=== PATIENT | female | born 1950 | race Caucasian/White ===

== ENCOUNTER 2018-01-21 04:13 | Emergency (ER) | payer OTHER ==
[2018-01-21 05:54] VITALS: BMI 34.5
--- NOTE | 2018-01-21 05:55 | PDOC ---
History of Present Illness - General Stated Complaint: ABD PAIN,VOMITING,DIZZINESS - History of Present Illness Initial Comments: 01/21/18 05:52 67 yo F with h/o ovarian cancer ( 2010 ) s/p total hysterectomy (2012 [facility]), with recurrence who p/w abdominal pain, vomiting. Patient is poor historian with poor insight into medical history. Patient reports multiple episodes of non bilious, non bloody emesis x 3 days. Also endorses worsening, unremitting, non radiating, crampy, midabdominal pressure/pain, x 3 days. Denies postprandial pain.Normal appeitie, and PO intake. Last BM x 2 days ago, with asbent BPR. + SOB, with no home O2 requirements. Endorses lightheadedness this AM. Pt. takes daily chemotherapy pill. Patient denies N/V, leg swelling pain, orthopnea, PND, cough, wheezing, F/C, CP , palpitations, urinary complaints, diarrhea, weakness, sensory changes. PMHx: as noted above ROS: as noted SHx: Denies Etoh, tobacco, IVDA Allergies:NKDA Past History - Past Medical History Allergies/Adverse Reactions: Allergies Allergy/AdvReac Type Severity Reaction Status Date / Time No Known Allergies Allergy Verified 01/21/18 05:49 Home Medications: Ambulatory Orders Bimatoprost [Lumigan] 5 ml OU DAILY 03/12/12 Albuterol 0.083% Nebulizer Fani [Ventolin 0.083% Nebulizer Soln -] 1 neb NEB QIDR #0 vial 03/18/12 Atorvastatin Ca [Lipitor] 20 mg PO HS #0 tablet 03/18/12 Gabapentin 300 mg PO DAILY #0 capsule 03/18/12 Glyburide/Metformin HCl [Glyburide-Metformin 5-500 mg] 1 each PO DAILY #0 tablet 03/18/12 Guaifenesin [Robitussin -] 5 ml PO Q4H PRN #0 cup 03/18/12 Insulin (Novolog) [Novolog Flexpen -] 0 units SQ ACHS #0 pen 03/18/12 Latanoprost 0.005% Eye Drops [Xalatan 0.005% Eye Drops -] 1 drop OU HS #0 drops 03/18/12 Magnesium Oxide [Mag-Ox -] 400 mg PO BID #0 tablet 03/18/12 Metoprolol Tartrate [Lopressor -] 25 mg PO BID #0 tab 03/18/12 Zejula 100 mg PO DAILY 10/06/17 Diabetes: Yes HTN: Yes Hypercholesterolemia: Yes - Surgical History Abdominal Surgery: Yes (abdominal hernia repair) - Suicide/Smoking/Psychosocial Hx Smoking Status: No Smoking History: Never smoked Number of Cigarettes Smoked Daily: 0 Hx Alcohol Use: Yes Drug/Substance Use Hx: Yes Substance Use Type: None Hx Substance Use Treatment: No Review of Systems - Review of Systems Comments:: 01/21/18 05:53 GENERAL/CONSTITUTIONAL: No fever or chills. No weakness. HEAD, EYES, EARS, NOSE AND THROAT: No change in vision. No ear pain or discharge. No sore throat. CARDIOVASCULAR: No chest pain or shortness of breath RESPIRATORY: No cough, wheezing, or hemoptysis. GASTROINTESTINAL: + nausea, vomiting, diarrhea, abdominal pain. No constipation. GENITOURINARY: No dysuria, frequency, or change in urination. MUSCULOSKELETAL: No joint or muscle swelling or pain. No neck or back pain. SKIN: No rash NEUROLOGIC: + Lightheadedness. No headache, vertigo, loss of consciousness, or change in strength/sensation. ENDOCRINE: No increased thirst. No abnormal weight change HEMATOLOGIC/LYMPHATIC: No anemia, easy bleeding, or history of blood clots. ALLERGIC/IMMUNOLOGIC: No hives or skin allergy. *Physical Exam - Physical Exam Comments: 01/21/18 05:53 GENERAL: Awake, alert, and fully oriented, in no acute distress HEAD: No signs of trauma, normocephalic, atraumatic EYES: PERRLA, EOMI, sclera anicteric, conjunctiva clear ENT: Auricles normal inspection, hearing grossly normal, nares patent, oropharynx clear without exudates. Moist mucosa NECK: Normal ROM, supple, no lymphadenopathy, JVD, or masses LUNGS: No distress, speaks full sentences, clear to auscultation bilaterally HEART: Regular rate and rhythm, normal S1 and S2, no murmurs, rubs or gallops, peripheral pulses normal and equal bilaterally. ABDOMEN: + Midabdominal ttp. Soft, nontender, normoactive bowel sounds, NDS. No guarding, no rebound, no rigidity. No masses. Neg CVA ttp. EXTREMITIES : Normal inspection, Normal range of motion, no edema. No clubbing or cyanosis. NEUROLOGICAL: Cranial nerves II through XII grossly intact. Normal speech, normal gait, no focal sensorimotor deficits SKIN: + Jaundiced appearing. Warm, Dry, normal turgor, no rashes or lesions noted ED Treatment Course - LABORATORY CBC & Chemistry Diagram: 01/21/18 06:40 01/21/18 06:40 Medical Decision Making - Medical Decision Making 01/21/18 06:36 67 yo F with h/o ovarian cancer ( 2010 ) s/p total hysterectomy (2012 [facility]), with recurrence who p/w abdominal pain, vomiting. HR 92, O2 80 % RA, vitals otherwise wnl, AF. O2 improved to 95% on 3 L NC. + Midabdominal ttp. Will consider biliary vs. hepatic dz. vs. metastisis. R/o SBO. PERC +, with moderate risk PE Weils criteria. DDx includes AAA, Ao dissection, mesenteric ischemia, diverticulitis, colititis, pancreatitis, nephrolithaisis. ED Course: CBC, CMP, LA, VBG, T&S, UA Zosyn ABD FLAT/UPRIGHT RAD, CXR CT AP, CT CHEST 01/21/18 07:12 H/H: 4.1/11.7 2 U PRBC 01/21/18 07:12 Patient signed out to day team. Patient stable. Pending CXR, ABD RAD,CTAP, CT CHEST *DC/Admit/Observation/Transfer Diagnosis at time of Disposition: Nausea & vomiting Qualifiers: Vomiting type: unspecified Vomiting Intractability: non-intractable Qualified Code(s): R11.2 - Nausea with vomiting, unspecified - Referrals Referrals: Ismael Amezquita MD [Primary Care Provider] - - Patient Instructions Additional Instructions: Please return to the emergency department with any new or worsening symptoms or concerns. Please follow up with your primary care physician within 72 hours. - Post Discharge Activity - Attestations Physician Attestion: 01/21/18 05:53 I attest to the information provided in this note.
--- NOTE | 2018-01-21 06:36 | PDOC ---
Attending Attestation - Resident Resident Name: Faisal Mixon - ED Attending Attestation I have performed the following: I have examined & evaluated the patient, The case was reviewed & discussed with the resident, I agree w/resident's findings & plan, Exceptions are as noted - HPI HPI: 01/21/18 07:19 The patient is a 67-year-old female, with a past medical history of HTN, HLD, DM , and ovarian cancer (diagnosed in 01/2011; total hysterectomy in 2012, recurrence "in the last few years"), who presents to the ED with 3-4 days of epigastric pain, nausea, vomiting, and shortness of breath. The patient describes the pain as constant, localized to the epigastrium, and pressure-like in sensation. Patient reports multiple episodes of nonbloody, nonbilious emesis in the past 3 days. Patient denies any episodes of diarrhea but does report constipation. LBM was 3 days ago; no blood noted. Patient is currently on oral chemotherapy. The patient is a poor historian. The patient denies any fevers or chills. Denies any chest pain or palpitations. Denies any urinary complaints. Allergies: NKA Social History: None reported Surgical History: hernia repair, total hysterectomy (2012). PCP: Dr. Amezquita - Physicial Exam PE: 01/21/18 06:33 GENERAL: Awake, alert, and fully oriented, in no acute distress. HEAD: No signs of trauma EYES: PERRLA, EOMI, +scleral icterus ENT: Oropharynx clear without exudates. Moist mucosa NECK: Normal ROM, supple, no lymphadenopathy, JVD, or masses LUNGS: Breath sounds equal, clear to auscultation bilaterally. No wheezes, and no crackles HEART: Regular rate and rhythm, normal S1 and S2, no murmurs, rubs or gallops ABDOMEN: diffuse ttp, worse over epigastric area, large healed midline scar. No rebound or guarding. Distention difficult to assess due to body habitus EXTREMITIES: Normal range of motion, trace symmetric LE non pitting edema. No clubbing or cyanosis. No cords, erythema, or tenderness NEUROLOGICAL: Normal speech, cranial nerves intact, 5/5 strength in all 4 extremities, normal sensation to light touch in all 4 extremities, normal tone SKIN: Jaundiced in appearance (although states unchanged) - Medical Decision Making 01/21/18 06:30 67yo F with MMP including recurrent ovarian ca on daily oral chemo (followed at [facility], does not know about metastasis or last tx date) presents to the ED with epigastric pain, N/V, and SOB. Pt found to be tachycardic, tachypneic, hypoxic and jaundiced in appearance. Will do a wide work up for abd pain, although concern for biliary obstruction likely due to mets. Will cover with Zosyn in case of ascending cholangitis. Will also work the pt up for PE given tachycardia and hypxia. Will check sepsis labs and obtain CXR/AXR. 01/21/18 07:17 Hgb 4, prbc ordered REmainder of w/u pending Pt signed out to day team for f/u on diagnostics and dispo Heart Score/ECG Review #1 01/21/18 07:18 Twelve-lead EKG was performed and reviewed by me. Normal sinus rhythm, rate 96. Normal axis. No ST elevations or T-wave inversions.
[2018-01-21] MEDS ORDERED: PIPERACILLIN/TAZOB 4.5 GM 4.5 GM in DEXTROSE 5%-WATER 100 ML IVPB ONE (06:37)
[2018-01-21 06:50] LABS: BASO % 0.3 % (0-2.0); EOS % 0.1 % (0-4.5); HEMATOCRIT 11.7 % (32.4-45.2); LYMPH % 13.6 % (8-40); MCHC 35.1 g/dl (32.0-36.0); MEAN CELL VOLUME 117.1 fl (80-96); MEAN PLT VOLUME 8.9 fl (7.5-11.1); MONO % 6.5 % (3.8-10.2); NEUT % 79.5 % (42.8-82.8); PLATELET COUNT 229 K/MM3 (134-434); RDW 21.6 % (11.6-15.6)
[2018-01-21] MEDS ORDERED: PIPERACILLIN/TAZOB 4.5 GM 4.5 GM/100 ML BAG IVPB ONE (06:50)
[2018-01-21 06:53] LABS: MCH 41.1 pg (25.7-33.7)
[2018-01-21 06:54] LABS: HEMOGLOBIN 4.1 GM/dL (10.7-15.3)
[2018-01-21 07:02] LABS: INR 1.54 (0.83-1.09); PROTHROMBIN TIME (PATIENT) 18.3 SEC (9.7-13.0)
[2018-01-21 07:04] LABS: ACTIVATED PTT 24.4 SECONDS (25.2-36.5)
[2018-01-21 07:08] LABS: VENOUS PC02 31.7 mmHg (38-52); VENOUS PH 7.41 (7.32-7.42)
[2018-01-21 07:09] LABS: VENOUS PO2 33.9 mmHg (28-48)
[2018-01-21 07:23] LABS: URINE APPEARANCE CLEAR; URINE BILIRUBIN NEGATIVE (<2.0 mg/dL); URINE COLOR YELLOW; URINE GLUCOSE (UA) NEGATIVE (NEGATIVE); URINE KETONE TRACE (NEGATIVE); URINE LEUK ESTERASE TRACE (NEGATIVE); URINE NITRITE NEGATIVE (NEGATIVE); URINE PROTEIN NEGATIVE (NEGATIVE); URINE UROBILINOGEN NEGATIVE mg/dL (0.2-1.0)
[2018-01-21] MEDS ORDERED: FUROSEMIDE 40 MG/4 ML INJECTABLE VIAL IVPUSH ONE (07:40)
[2018-01-21 07:45] LABS: EPI CELLS RARE /HPF (FEW); URINE BACTERIA RARE /hpf (NONE SEEN)
[2018-01-21 07:50] LABS: ALBUMIN 3.1 g/dl (3.4-5.0); ALK PHOS 104 U/L (45-117); ANION GAP 13 MMOL/L (8-16); BILIRUBIN,TOTAL 1.8 mg/dL (0.2-1); BLOOD UREA NITROGEN 32 mg/dL (7-18); CALCIUM 8.5 mg/dL (8.5-10.1); CHLORIDE 92 mmol/L (98-107); CO2 21 mmol/L (21-32); CREATININE 1.2 mg/dL (0.55-1.3); GLUCOSE,RANDOM 198 mg/dL (74-106); SGOT/AST 42 U/L (15-37); SGPT/ALT 26 U/L (13-61); SODIUM 126 mmol/L (136-145); TOT PROT 7.3 g/dl (6.4-8.2)
[2018-01-21 07:57] LABS: ANISOCYTOSIS 2+; MACROCYTOSIS 3+
[2018-01-21 07:58] LABS: PLATELET ESTIMATE ADEQUATE
[2018-01-21] MEDS ORDERED: FUROSEMIDE 40 MG/4 ML INJECTABLE VIAL ONE (10:12)
[2018-01-21] MEDS ORDERED: ONDANSETRON 4 MG/2 ML VIAL ONE (11:13)
--- NOTE | 2018-01-21 11:56 | EKG ---
Test Reason : Blood Pressure : / mmHG Vent. Rate : 096 BPM Atrial Rate : 096 BPM P-R Int : 132 ms QRS Dur : 086 ms QT Int : 380 ms P-R-T Axes : 041 -11 066 degrees QTc Int : 480 ms NORMAL SINUS RHYTHM WITH SINUS ARRHYTHMIA CANNOT RULE OUT ANTERIOR INFARCT , AGE UNDETERMINED ABNORMAL ECG WHEN COMPARED WITH ECG OF 17-MAR-2012 09:47, MINIMAL CRITERIA FOR ANTERIOR INFARCT ARE NOW PRESENT NON-SPECIFIC CHANGE IN ST SEGMENT IN LATERAL LEADS NONSPECIFIC T WAVE ABNORMALITY NOW EVIDENT IN ANTERIOR LEADS QT HAS LENGTHENED Confirmed by ЕЛЕНА RAMOS, SARAH ([id number]) on 01/21/2018 11:56:08 AM Referred By: Confirmed By:SARAH CHRISTIANSEN MD
--- NOTE | 2018-01-21 13:43 | PDOC ---
*Physical Exam - Vital Signs Last Vital Signs Temp Pulse Resp BP Pulse Ox 98 F 90 20 147/45 L 96 01/21/18 11:00 01/21/18 11:00 01/21/18 11:00 01/21/18 11:00 01/21/18 11:00 ED Treatment Course - LABORATORY CBC & Chemistry Diagram: 01/21/18 06:40 01/21/18 06:40 - ADDITIONAL ORDERS Additional order review: Laboratory Results 01/21/18 01/21/18 01/21/18 08:00 07:57 06:59 PT with INR INR PTT (Actin FS) VBG pH POC VBG pCO2 POC VBG pO2 Mixed VBG HCO3 Sodium Potassium Chloride Carbon Dioxide Anion Gap BUN Creatinine Creat Clearance w eGFR Random Glucose Lactic Acid 4.0 H* Calcium Total Bilirubin AST ALT Alkaline Phosphatase Troponin I Total Protein Albumin Urine Color Urine Appearance Urine pH Ur Specific Powers Urine Protein Urine Glucose (UA) Urine Ketones Urine Blood Urine Nitrite Urine Bilirubin Urine Urobilinogen Ur Leukocyte Esterase Urine WBC (Auto) Urine RBC (Auto) Ur Epithelial Cells Urine Bacteria Blood Type Cancelled O POSITIVE Antibody Screen Cancelled Negative Crossmatch See Detail 01/21/18 01/21/18 01/21/18 06:59 06:40 06:40 PT with INR INR PTT (Actin FS) VBG pH POC VBG pCO2 POC VBG pO2 Mixed VBG HCO3 Sodium Potassium Chloride Carbon Dioxide Anion Gap BUN Creatinine Creat Clearance w eGFR Random Glucose Lactic Acid 4.8 H* Calcium Total Bilirubin AST ALT Alkaline Phosphatase Troponin I Cancelled Total Protein Albumin Urine Color Yellow Urine Appearance Clear Urine pH 5.0 Ur Specific Powers 1.013 Urine Protein Negative Urine Glucose (UA) Negative Urine Ketones Trace H Urine Blood Negative Urine Nitrite Negative Urine Bilirubin Negative Urine Urobilinogen Negative Ur Leukocyte Esterase Trace Urine WBC (Auto) 2 Urine RBC (Auto) 1 Ur Epithelial Cells Rare Urine Bacteria Rare Blood Type Antibody Screen Crossmatch 01/21/18 01/21/18 01/21/18 06:40 06:40 06:40 PT with INR 18.30 H INR 1.54 H PTT (Actin FS) 24.4 L VBG pH 7.41 POC VBG pCO2 31.7 L POC VBG pO2 33.9 Mixed VBG HCO3 19.8 Sodium 126 L Potassium 4.0 Chloride 92 L Carbon Dioxide 21 Anion Gap 13 BUN 32 H Creatinine 1.2 Creat Clearance w eGFR 44.95 Random Glucose 198 H Lactic Acid Calcium 8.5 Total Bilirubin 1.8 H AST 42 H ALT 26 Alkaline Phosphatase 104 Troponin I 0.86 H* Total Protein 7.3 Albumin 3.1 L Urine Color Urine Appearance Urine pH Ur Specific Powers Urine Protein Urine Glucose (UA) Urine Ketones Urine Blood Urine Nitrite Urine Bilirubin Urine Urobilinogen Ur Leukocyte Esterase Urine WBC (Auto) Urine RBC (Auto) Ur Epithelial Cells Urine Bacteria Blood Type Antibody Screen Crossmatch 01/21/18 06:40 RBC 1.00 L MCV 117.1 H MCHC 35.1 RDW 21.6 H MPV 8.9 D Neutrophils % 79.5 D Lymphocytes % 13.6 D Monocytes % 6.5 Eosinophils % 0.1 D Basophils % 0.3 - RADIOLOGY Radiology Studies Ordered: Category Date Time Status ABDOMEN & PELVIS CT W/O CONTR [CT] Stat CT Scan 01/21/18 10:52 Ordered - Medications Given in the ED: ED Medications Discontinued Medications Generic Name Dose Route Start Last Admin Trade Name Freq PRN Reason Stop Dose Admin Furosemide 20 mg 01/21/18 07:40 01/21/18 10:22 Lasix Injection - IVPUSH 01/21/18 07:41 20 mg ONCE ONE Administration Piperacillin Sod/Tazobactam 100 mls @ 200 mls/hr 01/21/18 06:37 01/21/18 06: 50 Sod 4.5 gm/ Dextrose IVPB 01/21/18 07:06 200 mls/hr ONCE ONE Administration Protocol *DC/Admit/Observation/Transfer Diagnosis at time of Disposition: Nausea & vomiting Qualifiers: Vomiting type: unspecified Vomiting Intractability: non-intractable Qualified Code(s): R11.2 - Nausea with vomiting, unspecified - Discharge Dispostion Disposition: TRANSFER ACUTE CARE/OTHER HOSP Condition at time of disposition: Stable - Referrals Referrals: Ismael Amezquita MD [Primary Care Provider] - - Patient Instructions Additional Instructions: Please return to the emergency department with any new or worsening symptoms or concerns. Please follow up with your primary care physician within 72 hours. - Post Discharge Activity - Transfer to Acute Care Facility Receiving Facility: [facility]. Accepting Physician:: Mehdi
[2018-01-21 14:48] VITALS: TEMP 98.1
[2018-01-21 15:11] VITALS: BP 136/61; PULSE 100
== END 2018-01-21 15:16 | disposition short-term general hospital (02) ==
LOC: JER 04:13
PROC: 3E033GC Introduction of Other Therapeutic Substance into Peripheral Vein, Percutaneous Approach (ICD-10-PCS; principal; 2018-01-21)
PROC: 3E03329 Introduction of Other Anti-infective into Peripheral Vein, Percutaneous Approach (ICD-10-PCS; 2018-01-21)
DX: R11.2 Nausea with vomiting, unspecified (principal); Z85.43 Personal history of malignant neoplasm of ovary; I10 Essential (primary) hypertension; E78.00 Pure hypercholesterolemia, unspecified
CPT/HCPCS: 36415; 36430; 71045-TC-FY; 74176-TC; 80053; 81003; 81015; 82803; 83605; 84484; 85025; 85610; 85730; 86850; 86900; 86901; 86922; 87040; 87086; 93005; 93010; 96365; 96375; 99285-25; P9038; P9058

== ENCOUNTER 2018-07-18 17:38 | Inpatient (IN) | payer OTHER ==
[2018-07-18 18:20] VITALS: BMI 31.1
[2018-07-18] MEDS ORDERED: LABETALOL HCL 5 MG/1 ML (100MG/20 ML VIAL) IVPUSH ONE (18:27)
--- NOTE | 2018-07-18 18:31 | PDOC ---
History of Present Illness - General Chief Complaint: Weakness Stated Complaint: PCP SENT Time Seen by Provider: 07/18/18 18:04 History Source: Patient, Family Exam Limitations: No Limitations, Other (AMS) - History of Present Illness Initial Comments: 67 yo F h/o ovarian cancer (2010) s/p total hysterectomy (2012 [facility]) with recurrence sent by PCP for elevated BP and altered mental status. Per son at bedside, patient became unwell last and BP was elevated on Friday to over 200s systolic. Patient's mental status has progressively getting worse, off her baseline. No fever, chills, urinary or bowel sx, cough, sob, or chest pain. 07/18/18 19:51 Na+ 124, bp improved marginally after 10mg labetalol push, awaiting UA. Patient' s still altered. CT head negative. Will hydrate the patient at slow rate with NS, give 80mg of diovan for longer acting effect of bp control. reheck sodium in 6 h and neuro check q2h. Past History - Past Medical History Allergies/Adverse Reactions: Allergies Allergy/AdvReac Type Severity Reaction Status Date / Time No Known Allergies Allergy Verified 07/18/18 19:39 Home Medications: Ambulatory Orders Insulin (Novolog) [Novolog Flexpen -] 0 units SQ ACHS #0 pen 03/18/12 Isosorbide Mononitrate [Isosorbide Mononitrate ER] 30 mg PO BID 01/21/18 Aspirin [ASA -] 81 mg PO DAILY 07/18/18 Ferrous Sulfate 325 mg PO DAILY 07/18/18 Insulin Degludec [Tresiba Flextouch U-100] 0 unit SQ ASDIR 07/18/18 Magnesium 500 mg PO DAILY 07/18/18 Metoprolol Tartrate 50 mg PO BID 07/18/18 Shiloh-3 Fatty Acids/Fish Oil [Fish Oil 1,000 mg Capsule] 1 each PO DAILY Omeprazole 40 mg PO DAILY 07/18/18 Valsartan 320 mg PO DAILY 07/18/18 Vitamin B Complex 1 each PO DAILY 07/18/18 Cancer: Yes (Ovarian) COPD: No Diabetes: Yes HTN: Yes Hypercholesterolemia: Yes - Surgical History Abdominal Surgery: Yes (abdominal hernia repair) - Suicide/Smoking/Psychosocial Hx Smoking Status: No Smoking History: Never smoked Have you smoked in the past 12 months: No Number of Cigarettes Smoked Daily: 0 Information on smoking cessation initiated: No Hx Alcohol Use: No Drug/Substance Use Hx: No Substance Use Type: None Hx Substance Use Treatment: No Review of Systems - Review of Systems Able to Perform ROS?: No *Physical Exam - Vital Signs Last Vital Signs Temp Pulse Resp BP Pulse Ox 97.9 F 65 16 218/60 H 100 07/18/18 17:45 07/18/18 17:45 07/18/18 17:45 07/18/18 17:45 07/18/18 17:45 - Physical Exam General Appearance: Yes: Other (confused) Respiratory/Chest: positive: Lungs Clear Cardiovascular: positive: S1, S2, Irregularly Irregular. negative: Murmur Neurologic: positive: Confused, Disoriented ED Treatment Course - LABORATORY CBC & Chemistry Diagram: 07/18/18 18:53 07/18/18 21:15 - ADDITIONAL ORDERS Additional order review: Laboratory Results 07/18/18 18:06 POC Glucometer 134 07/18/18 18:06 POC Glucometer 134 *DC/Admit/Observation/Transfer Diagnosis at time of Disposition: Hypertensive encephalopathy Altered mental status Qualifiers: Altered mental status type: disorientation Qualified Code(s): R41.0 - Disorientation, unspecified - Discharge Dispostion Decision to Admit order: Yes - Referrals - Patient Instructions - Post Discharge Activity
[2018-07-18 18:47] LABS: BASO % 0.6 % (0-2.0); EOS % 0.8 % (0-4.5); HEMATOCRIT 33.1 % (32.4-45.2); HEMOGLOBIN 11.2 GM/dL (10.7-15.3); LYMPH % 27.2 % (8-40); MCH 30.5 pg (25.7-33.7); MCHC 33.9 g/dl (32.0-36.0); MEAN PLT VOLUME 7.9 fl (7.5-11.1); MONO % 6.2 % (3.8-10.2); NEUT % 65.2 % (42.8-82.8); PLATELET COUNT 225 K/MM3 (134-434); RBC 3.67 M/mm3 (3.60-5.2); RDW 17.4 % (11.6-15.6); WHITE BLOOD COUNT 7.3 K/mm3 (4.0-10.0)
[2018-07-18] MEDS ORDERED: LABETALOL HCL 5 MG/1 ML (200MG/40ML VIAL) IVPB ONE (18:54)
[2018-07-18 18:58] LABS: INR 1.13 (0.83-1.09); PROTHROMBIN TIME (PATIENT) 13.4 SEC (9.7-13.0)
[2018-07-18 19:00] LABS: ACTIVATED PTT 37.3 SECONDS (25.2-36.5)
[2018-07-18 19:08] LABS: VENOUS PC02 32.8 mmHg (41-51); VENOUS PH 7.52 (7.31-7.41); VENOUS PO2 32.9 mmHg (30-40)
[2018-07-18 19:12] LABS: ALK PHOS 90 U/L (45-117); ANION GAP 10 MMOL/L (8-16); BILIRUBIN,TOTAL 0.5 mg/dL (0.2-1); BLOOD UREA NITROGEN 21 mg/dL (7-18); CALCIUM 8.6 mg/dL (8.5-10.1); CHLORIDE 88 mmol/L (98-107); CO2 26 mmol/L (21-32); CREATININE 1.4 mg/dL (0.55-1.3); GLUCOSE,RANDOM 135 mg/dL (74-106); POTASSIUM 3.9 mmol/L (3.5-5.1); SGOT/AST 23 U/L (15-37); SGPT/ALT 19 U/L (13-61); SODIUM 124 mmol/L (136-145); TOT PROT 8.4 g/dl (6.4-8.2)
[2018-07-18] MEDS ORDERED: SODIUM CHLORIDE 1,000 ML IV SCH (19:30)
[2018-07-18] MEDS ORDERED: VALSARTAN 80 MG TABLET (UD) PO ONE (19:38)
--- NOTE | 2018-07-18 19:45 | PDOC ---
Attending Attestation - HPI HPI: 07/18/18 21:30 The patient is a 67 year old female, with a significant PMH of ovarian cancer, peritoneal cancer, diabetes, HTN and hypercholesterolemia, who was sent to the ER by her PCP for altered mental status and high blood pressure that began 2 days ago. Son reports to taking patient to the PCP regarding elevated BP where she was advised to stop her chemo pills. Son took patient to cyber forensic specialist yesterday and found no abnormal finding. Sales Market Leader report patient can start taking her chemo pills again. Today, the patient's mental status has progressively worsened today and mentions that her systolic was over 200s.The patients son also reports he came to the patient's house to give her medications and found medication box empty. Patient states she cleaned it out and unsure of what she did with it. The patient denies chest pain, shortness of breath, headache and dizziness.Denies fever, chills, nausea, vomit, diarrhea and constipation. Allergies: NKDA Past surgical history: None reported Social history: None reported PCP: None reported Documentation prepared by Trevin Lopez, acting as medical transcriber for Laurie Cabrera MD. - Physicial Exam PE: 07/18/18 21:31 GENERAL: Following commands unable to verbalize but able to comprehend The patient is in no acute distress. HEAD: Normal with no signs of trauma. LUNGS: Breath sounds equal, clear to auscultation bilaterally. No wheezes, and no crackles. HEART:Regular rate and rhythm, normal S1 and S2 without murmur, rub or gallop. ABDOMEN: Soft, nontender, normoactive bowel sounds. No guarding, no rebound. No masses palpable. EXTREMITIES: Normal range of motion, no edema. No clubbing or cyanosis. No erythema, or tenderness. NEUROLOGICAL: Cranial nerves II through XII grossly intact. Normal speech. No focal neurological deficits. MUSCULOSKELETAL: Back non-tender to palpation, no CVA tenderness SKIN:+cervical scar on the abdomen Documentation prepared by Trevin Lopez, acting as medical transcriber for Laurie Cabrera MD. <Trevin Lopez - Last Filed: 07/18/18 21:30> - Resident Resident Name: Mina Nguyen - ED Attending Attestation I have performed the following: I have examined & evaluated the patient, The case was reviewed & discussed with the resident, I agree w/resident's findings & plan - Medical Decision Making 07/18/18 20:03 EKG: NSR CXR port in the right subclavian Hear and lungs clear 07/19/18 00:03 Pt dehydrated; trace ketones in her urine. She has better mentition at this time. She can answer questions and tells us her name and her son's name. 07/19/18 04:53 Patient Name: VISHNU CALLES THIS IS A PRELIMINARY REPORT FROM IMAGING DIRECTOR [employer] DATE OF SERVICE: 2018-07-18 18:41:32 IMAGES: 138 Exam: CT head without IV contrast. Clinical indication:Altered mental status. Comparison:None available. Technique: Axial unenhanced CT images from the skull base through the brain were obtained followed by coronal and sagital reformats. Findings: The visualized bony structures are unremarkable. The visualized paranasal sinuses and mastoid air cells are clear. There is no evidence of intra-or extra-axial hemorrhage. The ventricles and basilar cisterns are unremarkable. There is some mild periventricular hypodensities consistent with mild chronic small vessel ischemic changes. There is no evidence of intracranial mass, acute infarct, or midline shift. Impression: 1. Mild chronic small vessel ischemic changes. 2. Otherwise, negative unenhanced CT of the brain <Laurie Cabrera - Last Filed: 07/19/18 04:54>
[2018-07-18] MEDS ORDERED: VALSARTAN 80 MG TABLET (UD) ONE (19:48)
[2018-07-18 20:42] LABS: PH,URINE 8.5 (5.0-8.0); URINE APPEARANCE CLEAR; URINE BILIRUBIN NEGATIVE (NEGATIVE); URINE COLOR YELLOW; URINE GLUCOSE (UA) NEGATIVE (NEGATIVE); URINE KETONE TRACE (NEGATIVE); URINE LEUK ESTERASE NEGATIVE (NEGATIVE); URINE NITRITE NEGATIVE (NEGATIVE); URINE PROTEIN NEGATIVE (NEGATIVE); URINE UROBILINOGEN 0.2 mg/dL (0.2-1.0)
[2018-07-18 20:46] LABS: MAGNESIUM 1.6 mg/dL (1.8-2.4); PHOSPHOROUS 2.6 mg/dL (2.5-4.9)
[2018-07-18] MEDS ORDERED: morphine CARPU-JECT 2 MG/1 ML DISP.SYRIN IVPUSH ONE (20:49)
[2018-07-18] MEDS ORDERED: NITROGLYCERIN 2% OINTMENT - 1GM PACKET TD ONE ×2 (20:49→20:56)
[2018-07-18] MEDS ORDERED: MAGNESIUM SULF 50% (8.12 MEQ/2 ML-1 GM VIAL) IVPB ONE (20:50)
[2018-07-18] MEDS ORDERED: MORPHINE SULFATE 2 MG/ML VIAL ONE (20:56)
[2018-07-18] MEDS ORDERED: MAGNESIUM 1GM/D5W - 1 GM/100 ML IVPB IVPB ONE (20:57)
[2018-07-18] MEDS ORDERED: ACETAMINOPHEN INJECTION 100 ML IVPB ONE (21:05)
[2018-07-18] MEDS ORDERED: NITROGLYCERIN SUBLINGUAL 1/150 0.4 MG TAB SL ONE (21:17)
[2018-07-18] MEDS ORDERED: ACETAMINOPHEN 1000 MG/100 ML VIAL (NON FORMULARY) IVPB ONE (21:18)
[2018-07-18 21:43] LABS: ALBUMIN 3.7 g/dl (3.4-5.0); ALK PHOS 83 U/L (45-117); ANION GAP 11 MMOL/L (8-16); BILIRUBIN,TOTAL 0.5 mg/dL (0.2-1); BLOOD UREA NITROGEN 20 mg/dL (7-18); CALCIUM 8.6 mg/dL (8.5-10.1); CHLORIDE 91 mmol/L (98-107); CO2 24 mmol/L (21-32); CREATININE 1.3 mg/dL (0.55-1.3); GLUCOSE,RANDOM 141 mg/dL (74-106); POTASSIUM 3.7 mmol/L (3.5-5.1); SGOT/AST 23 U/L (15-37); SGPT/ALT 17 U/L (13-61); SODIUM 126 mmol/L (136-145); TOT PROT 7.8 g/dl (6.4-8.2)
--- NOTE | 2018-07-18 23:30 | HP ---
Admitting History and Physical - Primary Care Physician PCP: Ismael Amezquita - Admission Chief Complaint: Elevated BP, AMS History of Present Illness: This is a 67 y/o woman with a PMHx of Ovarian Ca, (2011) s/p total hysterectomy (on Chemo x 1 year stopped on Friday), HTN, HLD, DM. Who presents to the ED for elevated BP and AMS. The son reports, taking the patient to her PCP for elevated BP, where she was advised to stop her chemo pills. The son took patient to the prick stitcher yesterday and who found no abnormal finding. The prick stitcher told him the patient can start taking her chemo pills again. Today, the patient's mental status has progressively worsened, and that her systolic BP was over 200.The patients son also reports he came to the patient' s house to give her medications and found her medication box empty.Patient states she cleaned it out and unsure of what she did with it. The son reports that the patient was very weak and unsteady on her feet. The son denies patient having slurred speech, facial droop or unilateral weakness. The patient denies numbness, tingling or blurred vision. Patient denies fever, chills, cough, SOB, CP, palpitations, AP, N/V/D, constipation, dysuria History Source: Family Member, Medical Record Limitations to Obtaining History: Clinical Condition - Past Medical History Cardiovascular: Yes: HTN, Hyperlipdemia Reproductive: Yes: Other (Ovarian Ca) Heme/Onc: Yes: Current Chemotherapy - Past Surgical History Past Surgical History: Yes: Hysterectomy (debulking) - Smoking History Smoking history: Never smoked Have you smoked in the past 12 months: No Aproximately how many cigarettes per day: 0 - Alcohol/Substance Use Hx Alcohol Use: No History of Substance Use: reports: None - Social History Usual Living Arrangement: Yes: With Spouse ADL: Independent History of Recent Travel: No Home Medications - Allergies Allergies/Adverse Reactions: Allergies Allergy/AdvReac Type Severity Reaction Status Date / Time No Known Allergies Allergy Verified 07/18/18 19:39 - Home Medications Home Medications: Ambulatory Orders Insulin (Novolog) [Novolog Flexpen -] 0 units SQ ACHS #0 pen 03/18/12 Isosorbide Mononitrate [Isosorbide Mononitrate ER] 30 mg PO BID 01/21/18 Aspirin [ASA -] 81 mg PO DAILY 07/18/18 Ferrous Sulfate 325 mg PO DAILY 07/18/18 Insulin Degludec [Tresiba Flextouch U-100] 0 unit SQ ASDIR 07/18/18 Magnesium 500 mg PO DAILY 07/18/18 Metoprolol Tartrate 50 mg PO BID 07/18/18 [place]-3 Fatty Acids/Fish Oil [Fish Oil 1,000 mg Capsule] 1 each PO DAILY Omeprazole 40 mg PO DAILY 07/18/18 Valsartan 320 mg PO DAILY 07/18/18 Vitamin B Complex 1 each PO DAILY 07/18/18 Family Disease History - Family Disease History Family History: Unable to Obtain Review of Systems - Review of Systems Constitutional: reports: No Symptoms Eyes: reports: No Symptoms HENT: reports: No Symptoms Neck: reports: No Symptoms Cardiovascular: reports: No Symptoms Respiratory: reports: No Symptoms Gastrointestinal: reports: No Symptoms Genitourinary: reports: No Symptoms Breasts: reports: No Symptoms Reported Musculoskeletal: reports: Muscle Weakness Integumentary: reports: No Symptoms Neurological: reports: Confusion, Dizziness, Unsteady Gait, Weakness Endocrine: reports: No Symptoms Hematology/Lymphatic: reports: No Symptoms Psychiatric: reports: No Symptoms Physical Examination Vital Signs: Vital Signs Temperature 99.3 F 07/18/18 21:26 Pulse Rate 73 07/18/18 21:44 Respiratory Rate 18 07/18/18 21:44 Blood Pressure 178/65 H 07/18/18 21:44 O2 Sat by Pulse Oximetry (%) 98 07/18/18 21:44 Constitutional: Yes: No Distress, Calm, Obese Eyes: Yes: WNL, Conjunctiva Clear, PERRL HENT: Yes: WNL, Atraumatic, Normocephalic Neck: Yes: WNL, Supple, Trachea Midline Cardiovascular: Yes: WNL, Regular Rate and Rhythm, S1, S2, Other (Port RCW) Respiratory: Yes: WNL, Regular, CTA Bilaterally Gastrointestinal: Yes: Normal Bowel Sounds, Soft, Abdomen, Obese, Other (well healed surgical scar midline) ...Rectal Exam: Yes: Sphincter Tone Normal Renal/: Yes: WNL Breast(s): Yes: WNL Extremities: Yes: WNL Edema: No Peripheral Pulses WNL: Yes Neurological: Yes: Alert, Confusion, Cran Nerves II-XII Intact. No: Facial Droop, Loss of Sensation, Numbness, Paresthesia ...Motor Strength: WNL Psychiatric: Yes: WNL, Alert, Oriented Labs: CBC, BMP 07/18/18 18:53 07/18/18 21:15 Laboratory Results - last 24 hr 07/18/18 07/18/18 07/18/18 18:00 18:06 18:22 WBC RBC Hgb Hct MCV MCH MCHC RDW Plt Count MPV Absolute Neuts (auto) Neutrophils % Lymphocytes % Monocytes % Eosinophils % Basophils % Nucleated RBC % PT with INR INR PTT (Actin FS) VBG pH POC VBG pCO2 POC VBG pO2 VBG HCO3 VBG O2 Sat (Trista) VBG Base Excess Sodium 124 L Potassium 3.9 Chloride 88 L Carbon Dioxide 26 Anion Gap 10 BUN 21 H Creatinine 1.4 H Creat Clearance w eGFR 37.62 POC Glucometer 134 Random Glucose 135 H Lactic Acid Calcium 8.6 Phosphorus 2.6 Magnesium 1.6 L Total Bilirubin 0.5 AST 23 ALT 19 Alkaline Phosphatase 90 Creatine Kinase 138 Cancelled CK-MB (CK-2) < 1.0 Troponin I < 0.02 Total Protein 8.4 H Albumin 4.0 Urine Color Urine Appearance Urine pH Ur Specific [place] Urine Protein Urine Glucose (UA) Urine Ketones Urine Blood Urine Nitrite Urine Bilirubin Urine Urobilinogen Ur Leukocyte Esterase Urine Osmolality 07/18/18 07/18/18 07/18/18 18:24 18:50 18:53 WBC 7.3 RBC 3.67 Hgb 11.2 Hct 33.1 D MCV 90.0 MCH 30.5 D MCHC 33.9 RDW 17.4 H Plt Count 225 MPV 7.9 D Absolute Neuts (auto) 4.8 Neutrophils % 65.2 Lymphocytes % 27.2 D Monocytes % 6.2 Eosinophils % 0.8 D Basophils % 0.6 Nucleated RBC % 0 PT with INR INR PTT (Actin FS) VBG pH 7.52 H POC VBG pCO2 32.8 L POC VBG pO2 32.9 VBG HCO3 26.7 VBG O2 Sat (Trista) 64.5 L VBG Base Excess 4.2 H Sodium Potassium Chloride Carbon Dioxide Anion Gap BUN Creatinine Creat Clearance w eGFR POC Glucometer Random Glucose Lactic Acid 1.4 Calcium Phosphorus Magnesium Total Bilirubin AST ALT Alkaline Phosphatase Creatine Kinase CK-MB (CK-2) Troponin I Total Protein Albumin Urine Color Urine Appearance Urine pH Ur Specific [place] Urine Protein Urine Glucose (UA) Urine Ketones Urine Blood Urine Nitrite Urine Bilirubin Urine Urobilinogen Ur Leukocyte Esterase Urine Osmolality 07/18/18 07/18/18 07/18/18 18:53 20:11 21:15 WBC RBC Hgb Hct MCV MCH MCHC RDW Plt Count MPV Absolute Neuts (auto) Neutrophils % Lymphocytes % Monocytes % Eosinophils % Basophils % Nucleated RBC % PT with INR 13.40 H INR 1.13 H PTT (Actin FS) 37.3 H VBG pH POC VBG pCO2 POC VBG pO2 VBG HCO3 VBG O2 Sat (Trista) VBG Base Excess Sodium 126 L Potassium 3.7 Chloride 91 L Carbon Dioxide 24 Anion Gap 11 BUN 20 H Creatinine 1.3 Creat Clearance w eGFR 40.98 POC Glucometer Random Glucose 141 H Lactic Acid Calcium 8.6 Phosphorus Magnesium Total Bilirubin 0.5 AST 23 ALT 17 Alkaline Phosphatase 83 Creatine Kinase CK-MB (CK-2) Troponin I Total Protein 7.8 Albumin 3.7 Urine Color Yellow Urine Appearance Clear Urine pH 8.5 H D Ur Specific [place] 1.009 L Urine Protein Negative Urine Glucose (UA) Negative Urine Ketones Trace H Urine Blood Negative Urine Nitrite Negative Urine Bilirubin Negative Urine Urobilinogen 0.2 Ur Leukocyte Esterase Negative Urine Osmolality 07/19/18 07/19/18 07/19/18 00:41 00:41 01:26 WBC RBC Hgb Hct MCV MCH MCHC RDW Plt Count MPV Absolute Neuts (auto) Neutrophils % Lymphocytes % Monocytes % Eosinophils % Basophils % Nucleated RBC % PT with INR INR PTT (Actin FS) VBG pH POC VBG pCO2 POC VBG pO2 VBG HCO3 VBG O2 Sat (Trista) VBG Base Excess Sodium Potassium Chloride Carbon Dioxide Anion Gap BUN Creatinine Creat Clearance w eGFR POC Glucometer 121 Random Glucose Lactic Acid 0.8 Calcium Phosphorus Magnesium Total Bilirubin AST ALT Alkaline Phosphatase Creatine Kinase CK-MB (CK-2) Troponin I Total Protein Albumin Urine Color Urine Appearance Urine pH Ur Specific [place] Urine Protein Urine Glucose (UA) Urine Ketones Urine Blood Urine Nitrite Urine Bilirubin Urine Urobilinogen Ur Leukocyte Esterase Urine Osmolality 394 Imaging - Results Chest X-ray: Image Reviewed Cat Scan: Image Reviewed EKG: Image Reviewed Problem List - Problems (1) Hypertensive urgency Assessment/Plan: Likely secondary to probable missed doses Continue cardiac monitoring EKG- NSR Labetolol, Diovan, NTG sl, paste given in ED Will continue home meds Appreciate Cardiology consult Chest Xray image- Port to RCW, no infiltrate no effusion Monitor CBC, BMP Code(s): I16.0 - HYPERTENSIVE URGENCY (2) Hypertensive encephalopathy Assessment/Plan: See above Head CT- No acute ICH, mild chronic small vessel ischemic changes Appreciate Neuro Consult Neuro checks Fall Precautions Seizure Precautions Code(s): I67.4 - HYPERTENSIVE ENCEPHALOPATHY (3) Altered mental status Assessment/Plan: See Above Code(s): R41.82 - ALTERED MENTAL STATUS, UNSPECIFIED Qualifiers: Altered mental status type: disorientation Qualified Code(s): R41.0 - Disorientation, unspecified (4) Hyponatremia Assessment/Plan: Likely secondary to Chemo IVF given in ED Continue gentle IVF BMP Q4h Urine Osmolality Serum Osmolality Code(s): E87.1 - HYPO-OSMOLALITY AND HYPONATREMIA (5) Diabetes mellitus Assessment/Plan: stable BGMs ISS Hold home meds Code(s): E11.9 - TYPE 2 DIABETES MELLITUS WITHOUT COMPLICATIONS (6) Ovarian cancer Assessment/Plan: s/p Hysterectomy Will need to verify Chemo med with home pharmacy f/u with Oncology outpatient Code(s): C56.9 - MALIGNANT NEOPLASM OF UNSPECIFIED OVARY Assessment/Plan This is a 67 y/o woman with a PMHx of: Ovarian Ca, 2009 (on oral Chemo) s/p total hysterectomy, HTN, HLD, DM. Admitted to Telemetry for Hypertensive urgency , Acute Hypertensive Encephalopathy, Hyponatremia for further evaluation of their emergent condition. Plan: See Problem List FEN NS@42ml/hr Replete lytes prn Diabetic Low Na Diet DVT ppx OOB SCDs Heparin SQ Dispo: Requires Inpatient Care Visit type - Emergency Visit Emergency Visit: Yes ED Registration Date: 07/18/18 Care time: The patient presented to the Emergency Department on the above date and was hospitalized for further evaluation of their emergent condition. - New Patient This patient is new to me today: Yes Date on this admission: 07/18/18 - Critical Care Critical Care patient: No
[2018-07-19] MEDS: SODIUM CHLORIDE 1,000 ML IV SCH (01:55)
[2018-07-19 08:10] LABS: BASO % 0.7 % (0-2.0); EOS % 0.9 % (0-4.5); HEMATOCRIT 30.8 % (32.4-45.2); HEMOGLOBIN 10.1 GM/dL (10.7-15.3); LYMPH % 38.7 % (8-40); MCH 29.7 pg (25.7-33.7); MCHC 32.8 g/dl (32.0-36.0); MEAN CELL VOLUME 90.4 fl (80-96); MEAN PLT VOLUME 7.8 fl (7.5-11.1); MONO % 8.6 % (3.8-10.2); NEUT % 51.1 % (42.8-82.8); PLATELET COUNT 208 K/MM3 (134-434); RBC 3.41 M/mm3 (3.60-5.2); RDW 17.6 % (11.6-15.6); WHITE BLOOD COUNT 6.9 K/mm3 (4.0-10.0)
[2018-07-19 08:41] LABS: MAGNESIUM 1.9 mg/dL (1.8-2.4); PHOSPHOROUS 4.2 mg/dL (2.5-4.9)
[2018-07-19 09:59] LABS: ANION GAP 9 MMOL/L (8-16); BLOOD UREA NITROGEN 18 mg/dL (7-18); CALCIUM 8.6 mg/dL (8.5-10.1); CHLORIDE 95 mmol/L (98-107); CO2 24 mmol/L (21-32); GLUCOSE,RANDOM 101 mg/dL (74-106); POTASSIUM 3.3 mmol/L (3.5-5.1); SODIUM 128 mmol/L (136-145)
[2018-07-19] MEDS: FERROUS SO4 325 MG TABLET (FP) PO SCH (10:07)
[2018-07-19] MEDS: VALSARTAN 160 MG TABLET (UD) PO SCH (10:07)
[2018-07-19] MEDS: METOPROLOL TARTRATE 50 MG TABLET (FP) PO SCH ×2 (10:07→22:28)
[2018-07-19] MEDS: INSULIN SLIDING SCALE (NOVOLOG) 1 VIAL SQ SCH ×4 (10:07→22:20)
[2018-07-19] MEDS: ASPIRIN 81 MG CHEWABLE TABLETS PO SCH (10:07)
[2018-07-19] MEDS: OMEGA-3 ACID ETHYL ESTERS (FATTY-ACIDS) 1 GM CAPSULE (FP) PO SCH (10:07)
[2018-07-19] MEDS: ISOSORBIDE MONONITRATE 30 MG TAB.SR.24H (FP) PO SCH ×2 (10:07→22:28)
[2018-07-19] MEDS: CHOLECALCIFEROL (VITAMIN D3) 400 UNIT TABLET (FP) PO SCH (10:08)
[2018-07-19] MEDS: PANTOPRAZOLE 40 MG TABLET (FP) PO SCH (10:08)
[2018-07-19] MEDS: MULTIVITAMINS (DAILY MVI) TABLET (FP) PO SCH (10:08)
[2018-07-19] MEDS: VITAMIN B COMPLEX W/C COMBO TABLET (FP) PO SCH (10:08)
--- NOTE | 2018-07-19 10:09 | CON.CARD ---
Consult Consult Specialty:: Cardiology Referred by:: Medicine Reason for Consultation:: HTN - History of Present Illness Chief Complaint: HTN History of Present Illness: 67F h/o Ovarian Ca, (2011) s/p total hysterectomy (on Chemo x 1 year stopped on Friday), HTN, HLD, DM p/w HTN, alt mental status. Went to PCP on Friday for elevated BP, advised to stop taking chemo pills. Mental status worsened, BP over 200 at home systolic, medication box at home empty per son and unclear if she took the meds. [place] dizzy, weak and unsteady. No chest pain, palps, dizziness, sob. In the ER BP 218/60 initially in ER, given labetolol 10 mg IV x1 and PO diovan with improvemetn as well as NTG paste. Currently no complaints , doesn't remember who her technical operations specialist is. - Past Medical History Cardio/Vascular: Yes: HTN, Hyperlipdemia - Past Surgical History Past Surgical History: Yes: Hysterectomy (debulking) - Alcohol/Substance Use Hx Alcohol Use: No History of Substance Use: reports: None - Smoking History Smoking history: Never smoked Have you smoked in the past 12 months: No Aproximately how many cigarettes per day: 0 - Social History ADL: Independent History of Recent Travel: No Home Medications - Allergies Allergies/Adverse Reactions: Allergies Allergy/AdvReac Type Severity Reaction Status Date / Time No Known Allergies Allergy Verified 07/18/18 19:39 - Home Medications Home Medications: Ambulatory Orders Insulin (Novolog) [Novolog Flexpen -] 0 units SQ ACHS #0 pen 03/18/12 Isosorbide Mononitrate [Isosorbide Mononitrate ER] 30 mg PO BID 01/21/18 Aspirin [ASA -] 81 mg PO DAILY 07/18/18 Ferrous Sulfate 325 mg PO DAILY 07/18/18 Insulin Degludec [Tresiba Flextouch U-100] 0 unit SQ ASDIR 07/18/18 Magnesium 500 mg PO DAILY 07/18/18 Metoprolol Tartrate 50 mg PO BID 07/18/18 [place]-3 Fatty Acids/Fish Oil [Fish Oil 1,000 mg Capsule] 1 each PO DAILY Omeprazole 40 mg PO DAILY 07/18/18 Valsartan 320 mg PO DAILY 07/18/18 Vitamin B Complex 1 each PO DAILY 07/18/18 Family Disease History - Family Disease History Family History: Unremarkable Review of Systems - Review of Systems Constitutional: reports: No Symptoms Eyes: reports: No Symptoms HENT: reports: No Symptoms Neck: reports: No Symptoms Cardiovascular: reports: No Symptoms Respiratory: reports: No Symptoms Gastrointestinal: reports: No Symptoms Genitourinary: reports: No Symptoms Musculoskeletal: reports: No Symptoms Integumentary: reports: No Symptoms Neurological: reports: No Symptoms Endocrine: reports: No Symptoms Hematology/Lymphatic: reports: No Symptoms Psychiatric: reports: No Symptoms Vital Signs: Vital Signs Temperature 99.3 F 07/18/18 21:26 Pulse Rate 61 07/19/18 06:55 Respiratory Rate 14 07/19/18 06:55 Blood Pressure 162/68 07/19/18 06:55 O2 Sat by Pulse Oximetry (%) 96 07/19/18 06:55 Constitutional: Yes: Well Nourished, No Distress, Calm Eyes: Yes: Conjunctiva Clear, EOM Intact HENT: Yes: Atraumatic, Normocephalic Neck: Yes: Supple, Trachea Midline Respiratory: Yes: Regular, CTA Bilaterally Gastrointestinal: Yes: Normal Bowel Sounds, Soft Cardiovascular: Yes: Regular Rate and Rhythm JVD: No Carotid Bruit: No PMI: Non-Displaced Heart Sounds: Yes: S1, S2 Musculoskeletal: No: Back Pain Extremities: No: Cold Edema: No Peripheral Pulses WNL: Yes Peripheral Pulses: 2+ Left Doralis Pedis, 2+ Right Dorsalis Pedis Integumentary: No: Jaundice Neurological: Yes: Alert, Oriented Psychiatric: No: Agitated - Other Data Labs, Other Data: CBC, BMP 07/19/18 07:30 07/19/18 07:30 INR, PTT INR 1.13 (0.83-1.09) H 07/18/18 18:53 Troponin, BNP 07/18/18 18:00 Troponin I < 0.02 Troponin, BNP 07/18/18 18:00 Troponin I < 0.02 Assessment/Plan EKG: sinus, nl intervals, no acute process CXR: no acute process tele: sinus 67F h/o Ovarian Ca, (2011) s/p total hysterectomy (on Chemo x 1 year stopped on Friday), HTN, HLD, DM p/w HTN, alt mental status. HTN - improved with IV labetolol, NTG paste and diovan in ER - likely due to noncompliance with meds - restart home meds, monitor, uptitrate meds as tolerated Alt mental status - neuro consulted - workup per primary hyponatremia - Na 128 - IVF, manage per primary, likely 2/2 chemo DM -manage per primary
[2018-07-19] MEDS ORDERED: POTASSIUM CHLORIDE TABS 20 MEQ TABLET.ER (FP) PO ONE ×4 (14:01→22:22)
--- NOTE | 2018-07-19 14:01 | PN ---
Progress Note, Physician - Current Medication List Current Medications: Active Medications Aspirin (Asa -) 81 mg PO DAILY [facility] Last Admin: 07/19/18 10:07 Dose: 81 mg Cholecalciferol (Vitamin D3 -) 400 unit PO DAILY [facility] Last Admin: 07/19/18 10:08 Dose: 400 unit Ferrous Sulfate (Feosol -) 325 mg PO DAILY [facility] Last Admin: 07/19/18 10:07 Dose: 325 mg Sodium Chloride (Normal Saline -) 1,000 mls @ 42 mls/hr IV ASDIR [facility] Last Admin: 07/19/18 01:55 Dose: 42 mls/hr Insulin Aspart (Novolog Vial Sliding Scale -) 1 vial SQ ACHS [facility]; Protocol Last Admin: 07/19/18 12:15 Dose: Not Given Isosorbide Mononitrate (Imdur -) 30 mg PO BID [facility] Last Admin: 07/19/18 10:07 Dose: 30 mg Metoprolol Tartrate (Lopressor -) 50 mg PO BID [facility] Last Admin: 07/19/18 10:07 Dose: 50 mg Multivitamins (Total B With C -) 1 each PO DAILY [facility] Last Admin: 07/19/18 10:08 Dose: 1 each Multivitamins/Minerals/Vitamin C (Tab-A-Vit -) 1 tab PO DAILY [facility] Last Admin: 07/19/18 10:08 Dose: 1 tab Non-Formulary Medication (Magnesium [Magnesium]) 500 mg PO DAILY [facility] [id number] Ethyl Esters (Lovaza -) 1 gm PO DAILY [facility] Last Admin: 07/19/18 10:07 Dose: 1 gm Pantoprazole Sodium (Protonix -) 40 mg PO DAILY [facility] Last Admin: 07/19/18 10:08 Dose: 40 mg Valsartan (Diovan -) 320 mg PO DAILY [facility] Last Admin: 07/19/18 10:07 Dose: 320 mg - Objective Vital Signs: Vital Signs Temperature 99.3 F 07/18/18 21:26 Pulse Rate 82 07/19/18 10:00 Respiratory Rate 16 07/19/18 10:00 Blood Pressure 166/48 L 07/19/18 10:00 O2 Sat by Pulse Oximetry (%) 99 07/19/18 10:00 Labs: CBC, BMP 07/19/18 07:30 07/19/18 07:30 INR, PTT INR 1.13 (0.83-1.09) H 07/18/18 18:53
[2018-07-19] MEDS ORDERED: ONDANSETRON *ODT* 4 MG TABLET SL PRN (14:28)
--- NOTE | 2018-07-19 16:52 | PN ---
Progress Note (short form) - Note Progress Note: DR VANG CALLED ME AND TOLD ME THE FAMILY OF THIS PATIENT HAVE CHOSEN HER THE PMD AND THEY WANT DR VANG TO FOLLOW THE PATIENT WHILE IN THE HOSPITAL. I AM SIGNING OFF THIS CASE AND DR. VANG TO TAKE OVER OF TODAY 4:52PM
[2018-07-19] MEDS ORDERED: INSULIN REGULAR HUMAN 100 UNITS/ML *VIAL ONE (17:33)
--- NOTE | 2018-07-19 20:21 | CONSULT ---
Consult Consult Specialty:: endocrine Referred by:: dr.annabi navarro Reason for Consultation:: diabetes mellitus hyperglycemia - History of Present Illness Chief Complaint: hyponatremia/uncontrolled hypertension History of Present Illness: 67 female,pmh of DM2, hypertension,hld, ovarin cancer (2010) s/p total hysterectomy (2012 [facility]) with recurrence seen by oncologist recently and was advised to consider either stopping or continuing her chemo drug,but patient did not stop the medication.Her son called me friday for elevated BP and altered mental status. Per son her bp was getting worst since and BP was elevated on Friday to over 200s systolic. Patient's mental status has progressively getting worse,. No fever, chills, urinary or bowel sx, cough, sob, or chest pain. he was advised to bring her to ed for evaluation.she was not advised to stop her chemo medication by her pcp,since her oncologist would have been notified. - History Source History Provided By: Patient - Past Medical History Cardio/Vascular: Yes: HTN, Hyperlipdemia - Past Surgical History Past Surgical History: Yes: Hysterectomy (debulking) - Alcohol/Substance Use Hx Alcohol Use: No History of Substance Use: reports: None - Smoking History Smoking history: Never smoked Have you smoked in the past 12 months: No Aproximately how many cigarettes per day: 0 - Social History ADL: Independent History of Recent Travel: No Home Medications - Allergies Allergies/Adverse Reactions: Allergies Allergy/AdvReac Type Severity Reaction Status Date / Time No Known Allergies Allergy Verified 07/18/18 19:39 - Home Medications Home Medications: Ambulatory Orders Insulin (Novolog) [Novolog Flexpen -] 0 units SQ ACHS #0 pen 03/18/12 Isosorbide Mononitrate [Isosorbide Mononitrate ER] 30 mg PO BID 01/21/18 Aspirin [ASA -] 81 mg PO DAILY 07/18/18 Ferrous Sulfate 325 mg PO DAILY 07/18/18 Insulin Degludec [Tresiba Flextouch U-100] 0 unit SQ ASDIR 07/18/18 Magnesium 500 mg PO DAILY 07/18/18 Metoprolol Tartrate 50 mg PO BID 07/18/18 [place]-3 Fatty Acids/Fish Oil [Fish Oil 1,000 mg Capsule] 1 each PO DAILY Omeprazole 40 mg PO DAILY 07/18/18 Valsartan 320 mg PO DAILY 07/18/18 Vitamin B Complex 1 each PO DAILY 07/18/18 Review of Systems - Review of Systems Constitutional: reports: Loss of Appetite, Weakness Eyes: reports: No Symptoms HENT: reports: No Symptoms Neck: reports: No Symptoms Cardiovascular: reports: No Symptoms Respiratory: reports: Exercise Intolerance Gastrointestinal: reports: Bloating, Constipation Genitourinary: reports: No Symptoms Breasts: reports: No Symptoms Reported Musculoskeletal: reports: Joint Pain, Muscle Pain Neurological: reports: Numbness, Weakness Endocrine: reports: Unexplained Weight Gain Physical Exam Vital Signs: Vital Signs Temperature 98.2 F 07/19/18 19:42 Pulse Rate 67 07/19/18 19:42 Respiratory Rate 20 07/19/18 19:42 Blood Pressure 159/57 L 07/19/18 19:42 O2 Sat by Pulse Oximetry (%) 98 07/19/18 19:42 Constitutional: Yes: Anxious Eyes: Yes: EOM Intact HENT: Yes: Normocephalic Neck: Yes: Trachea Midline Cardiovascular: Yes: Regular Rate and Rhythm Respiratory: Yes: CTA Bilaterally Gastrointestinal: Yes: Normal Bowel Sounds ...Rectal Exam: Yes: Deferred Musculoskeletal: Yes: WNL, Muscle Weakness Extremities: Yes: WNL Edema: No Neurological: Yes: Alert, Oriented Labs: CBC, BMP 07/19/18 07:30 07/19/18 07:30 Problem List - Problems (1) Diabetes mellitus Code(s): E11.9 - TYPE 2 DIABETES MELLITUS WITHOUT COMPLICATIONS (2) Hypertensive encephalopathy Code(s): I67.4 - HYPERTENSIVE ENCEPHALOPATHY (3) Hypertensive urgency Code(s): I16.0 - HYPERTENSIVE URGENCY (4) Hyponatremia Code(s): E87.1 - HYPO-OSMOLALITY AND HYPONATREMIA (5) Ovarian cancer Code(s): C56.9 - MALIGNANT NEOPLASM OF UNSPECIFIED OVARY (6) Nausea & vomiting Code(s): R11.2 - NAUSEA WITH VOMITING, UNSPECIFIED Qualifiers: Vomiting type: unspecified Vomiting Intractability: non-intractable Qualified Code(s): R11.2 - Nausea with vomiting, unspecified Assessment/Plan Current Active Problems dm 2 neuropathy Altered mental status (Acute) Diabetes mellitus (Acute) Hypertensive encephalopathy (Acute) Hypertensive urgency (Acute) Hyponatremia (Acute) Ovarian cancer (Acute) Abnormal Lab Results 07/18/18 07/18/18 07/18/18 18:00 20:11 21:15 RBC Hgb Hct RDW Sodium 126 L Potassium Chloride 91 L BUN 20 H Random Glucose 141 H Serum Osmolality Magnesium 1.6 L Ammonia Urine pH 8.5 H D Ur Specific [place] 1.009 L Urine Ketones Trace H 07/19/18 07/19/18 07/19/18 07:30 07:30 07:30 RBC 3.41 L Hgb 10.1 L Hct 30.8 L RDW 17.6 H Sodium 128 L Potassium 3.3 L Chloride 95 L BUN Random Glucose Serum Osmolality 270 L Magnesium Ammonia Urine pH Ur Specific [place] Urine Ketones 07/19/18 07:30 RBC Hgb Hct RDW Sodium Potassium Chloride BUN Random Glucose Serum Osmolality Magnesium [place] 10.20 L Urine pH Ur Specific [place] Urine Ketones plan: am cortisol/acth renal consult tsh free t4 bgm qid novolog scale levemir 25 units daily
--- NOTE | 2018-07-19 21:18 | PN ---
Progress Note (short form) - Note Progress Note: I was called by Rayray Flynn ( son and HCP ) of Mrs Lizeth Flynn requesting I provide primary care for his mother. The son reports she is followed by Dr Enciso ([facility]), who was also called by the son and informed of the request. I saw the patient and examined her in the ER She is unable to provide adequate hx, states had a lot of pain -yet unable to tell where the pain was located. Most hx obtained from son and ER record. Son also reports was at patients house day of ER visit and mother did not recognize him. Per ER : This is a 67 y/o woman with a PMHx of Ovarian Ca, (2011) s/p total hysterectomy (on Chemo x 1 year stopped on Friday), HTN, HLD, DM. Who presents to the ED for elevated BP and AMS. The son reports, taking the patient to her PCP for elevated BP, where she was advised to stop her chemo pills. The son took patient to the healthcare analyst yesterday and who found no abnormal finding. The healthcare analyst told him the patient can start taking her chemo pills again. Today, the patient's mental status has progressively worsened, and that her systolic BP was over 200.The patients son also reports he came to the patient' s house to give her medications and found her medication box empty.Patient states she cleaned it out and unsure of what she did with it. The son reports that the patient was very weak and unsteady on her feet. The son denies patient having slurred speech, facial droop or unilateral weakness. The patient denies numbness, tingling or blurred vision. Patient denies fever, chills, cough, SOB, CP, palpitations, AP, N/V/D, constipation, dysuria Vital Signs Period Temp Pulse Resp BP Sys/Elizondo Pulse Ox Last 24 Hr 98.2 F-99.3 F 61-82 14-20 159-178/48-68 96-99 awake alert oriented to person and place sitting up in bed speaking with fluent speech ( both Chinese and Cameroonian) but seem to forgets to finish her thoughts neck supple heart s1/S2 reg 2/6 SM lungs clear bilat abd soft ext no edema CBC, BMP 07/19/18 07:30 07/19/18 07:30 Microbiology 07/18/18 20:11 Urine - Urine Clean Catch Urine Culture - Final NO GROWTH OBTAINED 07/18/18 18:24 Blood - Peripheral Venous Blood Culture - Preliminary NO GROWTH OBTAINED AFTER 24 HOURS, INCUBATION TO CONTINUE FOR 4 DAYS. 07/18/18 18:29 Blood - Peripheral Venous Blood Culture - Preliminary NO GROWTH OBTAINED AFTER 24 HOURS, INCUBATION TO CONTINUE FOR 4 DAYS. Active Medications Aspirin (Asa -) 81 mg PO DAILY [facility] Last Admin: 07/20/18 09:29 Dose: 81 mg Cholecalciferol (Vitamin D3 -) 400 unit PO DAILY [facility] Last Admin: 07/20/18 09:41 Dose: 400 unit Ferrous Sulfate (Feosol -) 325 mg PO DAILY [facility] Last Admin: 07/20/18 09:30 Dose: 325 mg Sodium Chloride (Normal Saline -) 1,000 mls @ 42 mls/hr IV ASDIR [facility] Last Admin: 07/20/18 01:44 Dose: 42 mls/hr Insulin Aspart (Novolog Vial Sliding Scale -) 1 vial SQ ACHS [facility]; Protocol Last Admin: 07/20/18 11:17 Dose: Not Given Isosorbide Mononitrate (Imdur -) 30 mg PO BID [facility] Last Admin: 07/20/18 09:30 Dose: 30 mg Magnesium Oxide (Mag-Ox -) 400 mg PO DAILY [facility] Last Admin: 07/20/18 09:30 Dose: 400 mg Metoprolol Tartrate (Lopressor -) 50 mg PO BID [facility] Last Admin: 07/20/18 09:30 Dose: 50 mg Multivitamins (Total B With C -) 1 each PO DAILY [facility] Last Admin: 07/20/18 09:41 Dose: 1 each Multivitamins/Minerals/Vitamin C (Tab-A-Vit -) 1 tab PO DAILY [facility] Last Admin: 07/20/18 09:41 Dose: 1 tab Nwhfr-4-Efkx Ethyl Esters (Lovaza -) 1 gm PO DAILY [facility] Last Admin: 07/20/18 09:41 Dose: 1 gm Ondansetron HCl (Zofran Odt -) 4 mg SL Q6H PRN PRN Reason: NAUSEA AND/OR VOMITING Pantoprazole Sodium (Protonix -) 40 mg PO DAILY [facility] Last Admin: 07/20/18 09:30 Dose: 40 mg Sodium Chloride (Sodium Chloride Tablet -) 1 gm PO DAILY [facility] Last Admin: 07/20/18 09:41 Dose: 1 gm Valsartan (Diovan -) 320 mg PO DAILY [facility] Last Admin: 07/20/18 09:30 Dose: 320 mg 67F h/o Ovarian Ca, (2011) s/p total hysterectomy (on Chemo x 1 year stopped on Friday), HTN, HLD, DM p/w HTN, alt mental status. Son reports hx of low sodium "for many years "-- patient is followed at [facility] for oncology. # altered mental status CT negative for acute event Known to Dr Zuleta, will await follow up MRI ordered #HTN urgency tx with labetolol / NTG paste/ Diovan with improved control home meds restarted continue to monitor BP may not need adjustments once meds resumed #Hyponatermia long standing likely 2/2 to chemo meds start NaCL pills trend Na monitor mental status with correction of Na #DM followed by Endo consult appreciated meds adjusted per Endo
[2018-07-19] MEDS: SODIUM CHLORIDE 1 GM TABLET PO SCH (22:28)
[2018-07-20] MEDS: SODIUM CHLORIDE 1,000 ML IV SCH (01:44)
[2018-07-20 05:56] LABS: HEMATOCRIT 30.6 % (32.4-45.2); HEMOGLOBIN 10.2 GM/dL (10.7-15.3); MCH 30.4 pg (25.7-33.7); MCHC 33.3 g/dl (32.0-36.0); MEAN CELL VOLUME 91.4 fl (80-96); MEAN PLT VOLUME 7.7 fl (7.5-11.1); PLATELET COUNT 201 K/MM3 (134-434); RBC 3.35 M/mm3 (3.60-5.2); RDW 17.2 % (11.6-15.6); WHITE BLOOD COUNT 8.6 K/mm3 (4.0-10.0)
[2018-07-20] MEDS: INSULIN SLIDING SCALE (NOVOLOG) 1 VIAL SQ SCH ×2 (06:16→11:17)
[2018-07-20 06:28] LABS: ANION GAP 5 MMOL/L (8-16); BLOOD UREA NITROGEN 23 mg/dL (7-18); CALCIUM 8.7 mg/dL (8.5-10.1); CHLORIDE 106 mmol/L (98-107); CO2 25 mmol/L (21-32); CREATININE 1.2 mg/dL (0.55-1.3); GLUCOSE,RANDOM 108 mg/dL (74-106); POTASSIUM 4.6 mmol/L (3.5-5.1); SODIUM 136 mmol/L (136-145)
[2018-07-20] MEDS ORDERED: VALSARTAN 80 MG TABLET (UD) ONE (09:14)
[2018-07-20] MEDS ORDERED: ASPIRIN COATED 81 MG TABLET.EC ONE (09:15)
[2018-07-20] MEDS ORDERED: METOPROLOL TARTRATE 50 MG TABLET (FP) ONE (09:16)
[2018-07-20] MEDS ORDERED: PANTOPRAZOLE 40 MG TABLET (FP) ONE (09:16)
[2018-07-20] MEDS ORDERED: FERROUS SO4 325 MG TABLET (FP) ONE (09:16)
[2018-07-20] MEDS: ASPIRIN 81 MG CHEWABLE TABLETS PO SCH (09:29)
[2018-07-20] MEDS: FERROUS SO4 325 MG TABLET (FP) PO SCH (09:30)
[2018-07-20] MEDS: VALSARTAN 160 MG TABLET (UD) PO SCH (09:30)
[2018-07-20] MEDS: METOPROLOL TARTRATE 50 MG TABLET (FP) PO SCH ×2 (09:30→21:31)
[2018-07-20] MEDS: MAGNESIUM OXIDE 400 MG TABLET (FP) PO SCH (09:30)
[2018-07-20] MEDS: ISOSORBIDE MONONITRATE 30 MG TAB.SR.24H (FP) PO SCH ×2 (09:30→21:31)
[2018-07-20] MEDS: PANTOPRAZOLE 40 MG TABLET (FP) PO SCH (09:30)
[2018-07-20] MEDS: CHOLECALCIFEROL (VITAMIN D3) 400 UNIT TABLET (FP) PO SCH (09:41)
[2018-07-20] MEDS: VITAMIN B COMPLEX W/C COMBO TABLET (FP) PO SCH (09:41)
[2018-07-20] MEDS: SODIUM CHLORIDE 1 GM TABLET PO SCH (09:41)
[2018-07-20] MEDS: OMEGA-3 ACID ETHYL ESTERS (FATTY-ACIDS) 1 GM CAPSULE (FP) PO SCH (09:41)
[2018-07-20] MEDS: MULTIVITAMINS (DAILY MVI) TABLET (FP) PO SCH (09:41)
--- NOTE | 2018-07-20 09:46 | PN ---
Progress Note, Physician Chief Complaint: altered MS, bp high History of Present Illness: pt denies cp, sob, palp son states her MS is much improved, close to/at baseline - Current Medication List Current Medications: Active Medications Aspirin (Asa -) 81 mg PO DAILY [facility] Last Admin: 07/20/18 09:29 Dose: 81 mg Cholecalciferol (Vitamin D3 -) 400 unit PO DAILY [facility] Last Admin: 07/20/18 09:41 Dose: 400 unit Ferrous Sulfate (Feosol -) 325 mg PO DAILY [facility] Last Admin: 07/20/18 09:30 Dose: 325 mg Sodium Chloride (Normal Saline -) 1,000 mls @ 42 mls/hr IV ASDIR [facility] Last Admin: 07/20/18 01:44 Dose: 42 mls/hr Insulin Aspart (Novolog Vial Sliding Scale -) 1 vial SQ ACHS [facility]; Protocol Last Admin: 07/20/18 06:16 Dose: Not Given Isosorbide Mononitrate (Imdur -) 30 mg PO BID [facility] Last Admin: 07/20/18 09:30 Dose: 30 mg Magnesium Oxide (Mag-Ox -) 400 mg PO DAILY [facility] Last Admin: 07/20/18 09:30 Dose: 400 mg Metoprolol Tartrate (Lopressor -) 50 mg PO BID [facility] Last Admin: 07/20/18 09:30 Dose: 50 mg Multivitamins (Total B With C -) 1 each PO DAILY [facility] Last Admin: 07/20/18 09:41 Dose: 1 each Multivitamins/Minerals/Vitamin C (Tab-A-Vit -) 1 tab PO DAILY [facility] Last Admin: 07/20/18 09:41 Dose: 1 tab Wycqo-1-Hmzk Ethyl Esters (Lovaza -) 1 gm PO DAILY [facility] Last Admin: 07/20/18 09:41 Dose: 1 gm Ondansetron HCl (Zofran Odt -) 4 mg SL Q6H PRN PRN Reason: NAUSEA AND/OR VOMITING Pantoprazole Sodium (Protonix -) 40 mg PO DAILY [facility] Last Admin: 07/20/18 09:30 Dose: 40 mg Sodium Chloride (Sodium Chloride Tablet -) 1 gm PO DAILY [facility] Last Admin: 07/20/18 09:41 Dose: 1 gm Valsartan (Diovan -) 320 mg PO DAILY [facility] Last Admin: 07/20/18 09:30 Dose: 320 mg - Objective Vital Signs: Vital Signs Temperature 97.1 F L 07/20/18 04:54 Pulse Rate 65 07/20/18 04:54 Respiratory Rate 18 07/20/18 04:54 Blood Pressure 179/52 H 07/20/18 04:54 O2 Sat by Pulse Oximetry (%) 97 07/20/18 04:54 Constitutional: Yes: Well Nourished, No Distress, Calm Cardiovascular: Yes: Regular Rate and Rhythm, S1, S2. No: JVD, Gallop, Murmur Respiratory: Yes: Regular, CTA Bilaterally. No: Accessory Muscle Use, Rales, Wheezes Extremities: No: Cold Edema: No Neurological: Yes: Alert. No: Seizure Psychiatric: No: Agitated Labs: CBC, BMP 07/20/18 05:05 07/20/18 05:05 INR, PTT INR 1.13 (0.83-1.09) H 07/18/18 18:53 Assessment/Plan EKG: sinus, nl intervals, no acute process CXR: no acute process 67F h/o Ovarian Ca, (2011) s/p total hysterectomy (on Chemo x 1 year stopped on Friday), HTN, HLD, DM p/w HTN, alt mental status. HTN urgency - improved with IV labetolol, NTG paste and diovan in ER - likely due to noncompliance with meds - restarted home meds - BP much improved. up again to 170s early AM today--reassess after daily meds given this morning Alt mental status - neuro consulted - workup per primary hyponatremia - Na 128 - IVF, manage per primary, likely 2/2 chemo DM -manage per primary IF BP IS REASONABLY CONTROLLED AFTER AM MEDS TODAY, SHE DOES NOT REQUIRE FURTHER CV W/U OR MANAGEMENT CHANGES AT PRESENT
--- NOTE | 2018-07-20 10:16 | EKG ---
Test Reason : Blood Pressure : / mmHG Vent. Rate : 070 BPM Atrial Rate : 070 BPM P-R Int : 158 ms QRS Dur : 086 ms QT Int : 436 ms P-R-T Axes : 014 -37 016 degrees QTc Int : 470 ms NORMAL SINUS RHYTHM WITH SINUS ARRHYTHMIA LEFT AXIS DEVIATION MODERATE VOLTAGE CRITERIA FOR LVH, MAY BE NORMAL VARIANT ABNORMAL ECG WHEN COMPARED WITH ECG OF 21-JAN-2018 07:04, NO SIGNIFICANT CHANGE WAS FOUND Confirmed by SUSI RAMOS, NEHA ([id number]) on 07/20/2018 10:15:31 AM Referred By: Confirmed By:NEHA GOLDMAN MD
--- NOTE | 2018-07-20 18:02 | CONSULT ---
Consult - text type - Consultation Consultation Note: Renal consult for hyponatremia This is a 67 year old woman with hx fo Ovarian Ca s/p hysterectomy and chemo, Hypertension, HLD, DM presents with AMS and hypertensive emergency and noted to have hyponateremia. Serum na was 124 on presentation but not improved to normal with saline. Pt denies any seizures, confusion, lethargy or weakness. Mental status now back to normal as per patient. Denies any excessive water intake. No cough, chest pain, abd pain, fever or chills. PMHx: as above Allergies: NKDA Family Hx; NC Social Hx: No T/A/D ROS: as per HPI Home Medications Medication Instructions Recorded Insulin (Novolog) [Novolog Flexpen 0 units SQ ACHS #0 pen 03/18/12 -] Isosorbide Mononitrate [Isosorbide 30 mg PO BID 01/21/18 Mononitrate ER] Aspirin [ASA -] 81 mg PO DAILY 07/18/18 Ferrous Sulfate 325 mg PO DAILY 07/18/18 Insulin Degludec [Tresiba 0 unit SQ ASDIR 07/18/18 Flextouch U-100] Magnesium 500 mg PO DAILY 07/18/18 Metoprolol Tartrate 50 mg PO BID 07/18/18 [place]-3 Fatty Acids/Fish Oil [Fish 1 each PO DAILY 07/18/18 Oil 1,000 mg Capsule] Omeprazole 40 mg PO DAILY 07/18/18 Valsartan 320 mg PO DAILY 07/18/18 Vitamin B Complex 1 each PO DAILY 07/18/18 Vital Signs Temperature 98.6 F 07/20/18 16:30 Pulse Rate 66 07/20/18 17:00 Respiratory Rate 20 07/20/18 17:00 Blood Pressure 187/76 H 07/20/18 17:00 O2 Sat by Pulse Oximetry (%) 100 07/20/18 12:27 NAD awake and alert neck supple RRR, no M/R CTA soft NT/ND no LE edema, clubbing or cyanosis CBC, BMP 07/20/18 05:05 07/20/18 05:05 Current Medications Aspirin (Asa -) 81 mg PO DAILY [facility] Last Admin: 07/20/18 09:29 Dose: 81 mg Cholecalciferol (Vitamin D3 -) 400 unit PO DAILY [facility] Last Admin: 07/20/18 09:41 Dose: 400 unit Ferrous Sulfate (Feosol -) 325 mg PO DAILY [facility] Last Admin: 07/20/18 09:30 Dose: 325 mg Sodium Chloride (Normal Saline -) 1,000 mls @ 42 mls/hr IV ASDIR [facility] Last Admin: 07/20/18 01:44 Dose: 42 mls/hr Insulin Aspart (Novolog Vial Sliding Scale -) 1 vial SQ ACHS [facility]; Protocol Last Admin: 07/20/18 11:17 Dose: Not Given Isosorbide Mononitrate (Imdur -) 30 mg PO BID [facility] Last Admin: 07/20/18 09:30 Dose: 30 mg Magnesium Oxide (Mag-Ox -) 400 mg PO DAILY [facility] Last Admin: 07/20/18 09:30 Dose: 400 mg Metoprolol Tartrate (Lopressor -) 50 mg PO BID [facility] Last Admin: 07/20/18 09:30 Dose: 50 mg Multivitamins (Total B With C -) 1 each PO DAILY [facility] Last Admin: 07/20/18 09:41 Dose: 1 each Multivitamins/Minerals/Vitamin C (Tab-A-Vit -) 1 tab PO DAILY [facility] Last Admin: 07/20/18 09:41 Dose: 1 tab Gwwsm-1-Solh Ethyl Esters (Lovaza -) 1 gm PO DAILY [facility] Last Admin: 07/20/18 09:41 Dose: 1 gm Ondansetron HCl (Zofran Odt -) 4 mg SL Q6H PRN PRN Reason: NAUSEA AND/OR VOMITING Pantoprazole Sodium (Protonix -) 40 mg PO DAILY [facility] Last Admin: 07/20/18 09:30 Dose: 40 mg Sodium Chloride (Sodium Chloride Tablet -) 1 gm PO DAILY [facility] Last Admin: 07/20/18 09:41 Dose: 1 gm Valsartan (Diovan -) 320 mg PO DAILY [facility] Last Admin: 07/20/18 09:30 Dose: 320 mg 67 year old woman with hx fo Ovarian Ca s/p hysterectomy and chemo, Hypertension , HLD, DM presents with AMS and hypertensive emergency and noted to have hyponateremia. #Acute Hyponatremia now resolved #Hypertensive emergency #AMS #Ovarian Ca on recent chemo Serum na now improved to normal limits discontinue IVF at the present time oral solute and fluid intake as per hunger/thrist trend serum na levels continue home BP meds: Valsartan/Imdur/Metoprolol Can consider addition of amlodipine if BP control not achieved Thank you Emmanuel Cordero DO
--- NOTE | 2018-07-20 18:09 | PN ---
Progress Note (short form) - Note Progress Note: Patient seen and examined in her room family at bedside cognition seem improved today but still easily confused Vital Signs Period Temp Pulse Resp BP Sys/Elizondo Pulse Ox Last 24 Hr 97.1 F-98.6 F 60-71 17-20 144-192/42-83 97-100 sitting up / speech fluent ambulates without assitance motor strength equal 5/5 neck supple / no meningeal signs heart s1/S2 reg 2/6 SM lungs clear bilat abd soft ext no edema CBC, BMP 07/20/18 05:05 07/20/18 05:05 CBC, BMP 07/19/18 07:30 07/19/18 07:30 Microbiology 07/18/18 20:11 Urine - Urine Clean Catch Urine Culture - Final NO GROWTH OBTAINED 07/18/18 18:24 Blood - Peripheral Venous Blood Culture - Preliminary NO GROWTH OBTAINED AFTER 24 HOURS, INCUBATION TO CONTINUE FOR 4 DAYS. 07/18/18 18:29 Blood - Peripheral Venous Blood Culture - Preliminary NO GROWTH OBTAINED AFTER 24 HOURS, INCUBATION TO CONTINUE FOR 4 DAYS. Active Medications Aspirin (Asa -) 81 mg PO DAILY [facility] Last Admin: 07/20/18 09:29 Dose: 81 mg Cholecalciferol (Vitamin D3 -) 400 unit PO DAILY [facility] Last Admin: 07/20/18 09:41 Dose: 400 unit Ferrous Sulfate (Feosol -) 325 mg PO DAILY [facility] Last Admin: 07/20/18 09:30 Dose: 325 mg Sodium Chloride (Normal Saline -) 1,000 mls @ 42 mls/hr IV ASDIR [facility] Last Admin: 07/20/18 01:44 Dose: 42 mls/hr Insulin Aspart (Novolog Vial Sliding Scale -) [address] [facility]; Protocol Last Admin: 07/20/18 11:17 Dose: Not Given Isosorbide Mononitrate (Imdur -) 30 mg PO BID [facility] Last Admin: 07/20/18 09:30 Dose: 30 mg Magnesium Oxide (Mag-Ox -) 400 mg PO DAILY [facility] Last Admin: 07/20/18 09:30 Dose: 400 mg Metoprolol Tartrate (Lopressor -) 50 mg PO BID [facility] Last Admin: 07/20/18 09:30 Dose: 50 mg Multivitamins (Total B With C -) 1 each PO DAILY [facility] Last Admin: 07/20/18 09:41 Dose: 1 each Multivitamins/Minerals/Vitamin C (Tab-A-Vit -) 1 tab PO DAILY [facility] Last Admin: 07/20/18 09:41 Dose: 1 tab Baujc-0-Euyi Ethyl Esters (Lovaza -) 1 gm PO DAILY [facility] Last Admin: 07/20/18 09:41 Dose: 1 gm Ondansetron HCl (Zofran Odt -) 4 mg SL Q6H PRN PRN Reason: NAUSEA AND/OR VOMITING Pantoprazole Sodium (Protonix -) 40 mg PO DAILY [facility] Last Admin: 07/20/18 09:30 Dose: 40 mg Sodium Chloride (Sodium Chloride Tablet -) 1 gm PO DAILY [facility] Last Admin: 07/20/18 09:41 Dose: 1 gm Valsartan (Diovan -) 320 mg PO DAILY [facility] Last Admin: 07/20/18 09:30 Dose: 320 mg 67F h/o Ovarian Ca, (2011) s/p total hysterectomy (on Chemo x 1 year stopped on Friday), HTN, HLD, DM p/w HTN, alt mental status. Son reports hx of low sodium "for many years "-- patient is followed at [facility] for oncology. Son reports patient with DX of peritoneal Ca s/p surgical debulking and chemo tx -- she is treated at [facility] The son feels patient clinically deteriorates when she takes chemo meds # altered mental status CT negative for acute event Known to Dr Zuleta, will await follow up MRI ordered #HTN urgency tx with labetolol / NTG paste/ Diovan with improved control home meds restarted continue to monitor BP may not need adjustments once meds resumed #Hyponatermia long standing likely 2/2 to chemo meds start NaCL pills trend Na monitor mental status with correction of Na #DM followed by Endo consult appreciated meds adjusted per Endo #Peritoneal malingancy s/p debulking / on PO chemo (unsure of name ) discussed with family will request Onc opinion
--- NOTE | 2018-07-20 21:51 | CONSULT ---
Consult - text type - Consultation Consultation Note: NEUROLOGY CONSULTATION is greatly appreciated: This 67 yo RH woman with h/o DM, HTN, Chol, ASHD, GERD and ovarian/peritoneal cancer is maintained on: Insulins, isordil, ASA 81, FeSO4, Mg++, metoprolol (50 BID), omeprazole, valsartan and chemoRx. Now admitted after 3-4 days of severe left hemicranial headache with elevated BP. Headache is better today. Lizeth has had episodic headaches since teenage years. These were frequent and severe with menses and improved after menapause now occurring approx 1/week. Headaches can awaken her from sleep or be present in the AM upon awakening. Sometmes during the day she "can feel them coming on." Almost always left - sided throbbing headaches with nausea, vomiting, photophobia, phonophobia and worsening with movements. Strongly ++ FH of headaches in her 4 sons, siblings and maternal relatives CT of head (reviewed): Normal Pt for MRI of brain tonight. ОЛЕГ: Neck supple. Mormocephalic. NEURO: MS/speech: Normal CN II-XII: Normal Motor: No drift or tremor. Normal strength, tone and bulk. Normal reflexes incl. AJ's. Toes downgoing. Coord: No FTN dystaxia Sensory: Normal. Romberg neg. Gait: Normal IMP: Normal neurological exam. Migraine headaches. SUGGEST: Cont. Metoprolol and increase the dose if possible. Add topiramate 25 mg BID x 1 week then 50 mg PO BID. Neuro f/u as out patient. Thank you very much, Juan R Zuleta MD
--- NOTE | 2018-07-20 23:02 | CONSULT ---
Consult - text type - Consultation Consultation Note: This is a 67 year old woman with hx fo Ovarian Ca s/p hysterectomy and several lines of chemotherapy snce 2012, most recently on niraparib since 06/09 , Hypertension, HLD, DM presents with AMS and hypertensive emergency and noted to have hyponateremia. Serum na was 124 on presentation but not improved to normal with saline. Pt denies any seizures, confusion, lethargy or weakness. Mental status now back to normal as per patient. Denies any excessive water intake. No cough, chest pain, abd pain, fever or chills. Still with some headache PMHx: as above Allergies: NKDA Family Hx; NC Social Hx: No T/A/D ROS: as per HPI Home Medications Medication Instructions Recorded Insulin (Novolog) [Novolog Flexpen 0 units SQ ACHS #0 pen 03/18/12 -] Isosorbide Mononitrate [Isosorbide 30 mg PO BID 01/21/18 Mononitrate ER] Aspirin [ASA -] 81 mg PO DAILY 07/18/18 Ferrous Sulfate 325 mg PO DAILY 07/18/18 Insulin Degludec [Tresiba 0 unit SQ ASDIR 07/18/18 Flextouch U-100] Magnesium 500 mg PO DAILY 07/18/18 Metoprolol Tartrate 50 mg PO BID 07/18/18 [place]-3 Fatty Acids/Fish Oil [Fish 1 each PO DAILY 07/18/18 Oil 1,000 mg Capsule] Omeprazole 40 mg PO DAILY 07/18/18 Valsartan 320 mg PO DAILY 07/18/18 Vitamin B Complex 1 each PO DAILY 07/18/18 Vital Signs Temperature 98.6 F 07/20/18 16:30 Pulse Rate 66 07/20/18 17:00 Respiratory Rate 20 07/20/18 17:00 Blood Pressure 187/76 H 07/20/18 17:00 O2 Sat by Pulse Oximetry (%) 100 07/20/18 12:27 NAD awake and alert neck supple RRR, no M/R CTA soft NT/ND no LE edema, clubbing or cyanosis CBC, BMP 07/20/18 05:05 07/20/18 05:05 Current Medications Aspirin (Asa -) 81 mg PO DAILY [facility] Last Admin: 07/20/18 09:29 Dose: 81 mg Cholecalciferol (Vitamin D3 -) 400 unit PO DAILY [facility] Last Admin: 07/20/18 09:41 Dose: 400 unit Ferrous Sulfate (Feosol -) 325 mg PO DAILY [facility] Last Admin: 07/20/18 09:30 Dose: 325 mg Sodium Chloride (Normal Saline -) 1,000 mls @ 42 mls/hr IV ASDIR [facility] Last Admin: 07/20/18 01:44 Dose: 42 mls/hr Insulin Aspart (Novolog Vial Sliding Scale -) 1 vial SQ ACHS [facility]; Protocol Last Admin: 07/20/18 11:17 Dose: Not Given Isosorbide Mononitrate (Imdur -) 30 mg PO BID [facility] Last Admin: 07/20/18 09:30 Dose: 30 mg Magnesium Oxide (Mag-Ox -) 400 mg PO DAILY [facility] Last Admin: 07/20/18 09:30 Dose: 400 mg Metoprolol Tartrate (Lopressor -) 50 mg PO BID [facility] Last Admin: 07/20/18 09:30 Dose: 50 mg Multivitamins (Total B With C -) 1 each PO DAILY [facility] Last Admin: 07/20/18 09:41 Dose: 1 each Multivitamins/Minerals/Vitamin C (Tab-A-Vit -) 1 tab PO DAILY [facility] Last Admin: 07/20/18 09:41 Dose: 1 tab Ttymn-3-Ggiy Ethyl Esters (Lovaza -) 1 gm PO DAILY [facility] Last Admin: 07/20/18 09:41 Dose: 1 gm Ondansetron HCl (Zofran Odt -) 4 mg SL Q6H PRN PRN Reason: NAUSEA AND/OR VOMITING Pantoprazole Sodium (Protonix -) 40 mg PO DAILY [facility] Last Admin: 07/20/18 09:30 Dose: 40 mg Sodium Chloride (Sodium Chloride Tablet -) 1 gm PO DAILY [facility] Last Admin: 07/20/18 09:41 Dose: 1 gm Valsartan (Diovan -) 320 mg PO DAILY [facility] Last Admin: 07/20/18 09:30 Dose: 320 mg a/p 67 year old woman with hx fo Ovarian Ca s/p hysterectomy and several lines of chemotherapy [facility] [place], most recently on niraparib since 06/09 ,Hypertension, HLD , DM presents with AMS and hypertensive emergency and noted to have hyponateremia. Being treaed at [facility] suspect hypertensive urgency due to niraparib. hold niraparib. on antihyertensives per renal. niraparib may need doseadjustment. hold for now until escobar controlled adequately will follow
[2018-07-21 06:52] LABS: BASO % 0.9 % (0-2.0); HEMATOCRIT 28.5 % (32.4-45.2); HEMOGLOBIN 9.5 GM/dL (10.7-15.3); LYMPH % 34.5 % (8-40); MCH 30.3 pg (25.7-33.7); MCHC 33.3 g/dl (32.0-36.0); MEAN CELL VOLUME 91.2 fl (80-96); MEAN PLT VOLUME 7.8 fl (7.5-11.1); MONO % 7.3 % (3.8-10.2); NEUT % 54.3 % (42.8-82.8); PLATELET COUNT 193 K/MM3 (134-434); RBC 3.13 M/mm3 (3.60-5.2); RDW 17.3 % (11.6-15.6); WHITE BLOOD COUNT 7.8 K/mm3 (4.0-10.0)
[2018-07-21] MEDS ORDERED: PT OWN MED DRAWER 7, Y5N ONE (07:02)
[2018-07-21 07:25] LABS: ALBUMIN 3.3 g/dl (3.4-5.0); ANION GAP 7 MMOL/L (8-16); BLOOD UREA NITROGEN 20 mg/dL (7-18); CALCIUM 8.9 mg/dL (8.5-10.1); CHLORIDE 107 mmol/L (98-107); CO2 24 mmol/L (21-32); CREATININE 0.9 mg/dL (0.55-1.3); GLUCOSE,RANDOM 113 mg/dL (74-106); MAGNESIUM 1.9 mg/dL (1.8-2.4); SODIUM 138 mmol/L (136-145)
[2018-07-21] MEDS ORDERED: ACETAMINOPHEN 325 MG TABLET (FP) ONE (09:19)
[2018-07-21] MEDS: PANTOPRAZOLE 40 MG TABLET (FP) PO SCH (09:32)
[2018-07-21] MEDS: FERROUS SO4 325 MG TABLET (FP) PO SCH (09:32)
[2018-07-21] MEDS: VALSARTAN 160 MG TABLET (UD) PO SCH (09:32)
[2018-07-21] MEDS: OMEGA-3 ACID ETHYL ESTERS (FATTY-ACIDS) 1 GM CAPSULE (FP) PO SCH (09:32)
[2018-07-21] MEDS: MULTIVITAMINS (DAILY MVI) TABLET (FP) PO SCH (09:32)
[2018-07-21] MEDS: ISOSORBIDE MONONITRATE 30 MG TAB.SR.24H (FP) PO SCH ×2 (09:32→21:37)
[2018-07-21] MEDS: METOPROLOL TARTRATE 50 MG TABLET (FP) PO SCH ×2 (09:32→21:37)
[2018-07-21] MEDS: MAGNESIUM OXIDE 400 MG TABLET (FP) PO SCH (09:33)
[2018-07-21] MEDS: ASPIRIN 81 MG CHEWABLE TABLETS PO SCH (09:33)
--- NOTE | 2018-07-21 11:44 | PN ---
Progress Note (short form) - Note Progress Note: s: no chest pain, palps, dizziness. Current Medications Aspirin (Asa -) 81 mg PO DAILY [facility] Last Admin: 07/21/18 09:33 Dose: 81 mg Cholecalciferol (Vitamin D3 -) 400 unit PO DAILY [facility] Last Admin: 07/20/18 09:41 Dose: 400 unit Ferrous Sulfate (Feosol -) 325 mg PO DAILY [facility] Last Admin: 07/21/18 09:32 Dose: 325 mg Sodium Chloride (Normal Saline -) 1,000 mls @ 42 mls/hr IV ASDIR [facility] Last Admin: 07/20/18 01:44 Dose: 42 mls/hr Insulin Aspart (Novolog Vial Sliding Scale -) 1 vial SQ ACHS [facility]; Protocol Last Admin: 07/20/18 11:17 Dose: Not Given Isosorbide Mononitrate (Imdur -) 30 mg PO BID [facility] Last Admin: 07/21/18 09:32 Dose: 30 mg Magnesium Oxide (Mag-Ox -) 400 mg PO DAILY [facility] Last Admin: 07/21/18 09:33 Dose: 400 mg Metoprolol Tartrate (Lopressor -) 50 mg PO BID [facility] Last Admin: 07/21/18 09:32 Dose: 50 mg Multivitamins (Total B With C -) 1 each PO DAILY [facility] Last Admin: 07/20/18 09:41 Dose: 1 each Multivitamins/Minerals/Vitamin C (Tab-A-Vit -) 1 tab PO DAILY [facility] Last Admin: 07/21/18 09:32 Dose: 1 tab Segkx-6-Xysj Ethyl Esters (Lovaza -) 1 gm PO DAILY [facility] Last Admin: 07/21/18 09:32 Dose: 1 gm Ondansetron HCl (Zofran Odt -) 4 mg SL Q6H PRN PRN Reason: NAUSEA AND/OR VOMITING Pantoprazole Sodium (Protonix -) 40 mg PO DAILY [facility] Last Admin: 07/21/18 09:32 Dose: 40 mg Sodium Chloride (Sodium Chloride Tablet -) 1 gm PO DAILY [facility] Last Admin: 07/20/18 09:41 Dose: 1 gm Valsartan (Diovan -) 320 mg PO DAILY [facility] Last Admin: 07/21/18 09:32 Dose: 320 mg - Objective Vital Signs: Vital Signs Period Temp Pulse Resp BP Sys/Elizondo Pulse Ox Last 24 Hr 97.7 F-98.6 F 57-93 17-20 155-193/64-95 95-100 Constitutional: Yes: Well Nourished, No Distress, Calm Cardiovascular: Yes: Regular Rate and Rhythm, S1, S2. No: JVD, Gallop, Murmur Respiratory: Yes: Regular, CTA Bilaterally. No: Accessory Muscle Use, Rales, Wheezes Extremities: No: Cold Edema: No Neurological: Yes: Alert. No: Seizure Psychiatric: No: Agitated Assessment/Plan EKG: sinus, nl intervals, no acute process CXR: no acute process 67F h/o Ovarian Ca, (2011) s/p total hysterectomy (on Chemo x 1 year stopped on Friday), HTN, HLD, DM p/w HTN, alt mental status. HTN urgency - improved with IV labetolol, NTG paste and diovan in ER - likely due to noncompliance with meds - restarted home meds - BP improved yesterday however still with high BPs - repeat BP now has received AM meds, if remains elevated would start amlodipine 2.5 mg daily and uptitrate as tolerated Alt mental status - neuro consulted - workup per primary hyponatremia - Na 128 - IVF, manage per primary, likely 2/2 chemo DM -manage per primary
[2018-07-21] MEDS: SODIUM CHLORIDE 1 GM TABLET PO SCH (12:48)
[2018-07-21] MEDS: CHOLECALCIFEROL (VITAMIN D3) 400 UNIT TABLET (FP) PO SCH (12:48)
[2018-07-21] MEDS: amLODIPine BESYLATE 2.5 MG TABLET (FP) PO SCH (12:49)
[2018-07-21] MEDS: VITAMIN B COMPLEX W/C COMBO TABLET (FP) PO SCH (12:49)
[2018-07-21] MEDS: INSULIN SLIDING SCALE (NOVOLOG) 1 VIAL SQ SCH ×2 (12:49→21:37)
--- NOTE | 2018-07-21 14:46 | PN ---
Physical Exam: SUBJECTIVE: Patient seen and examined at bedside. This is a 67 yr old female with hx ovarian CA s/p total hysterectomy on chemo with niraparib admitted for hypertensive encephalopathy. Currently feeling better, denies any acute complaints. OBJECTIVE: Vital Signs Period Temp Pulse Resp BP Sys/Elizondo Pulse Ox Last 24 Hr 97.7 F-98.6 F 57-93 18-20 155-193/62-95 95-95 GENERAL: A&Ox3, no acute distress EYES: PERRLA, EOMI ENT: Moist mucus membranes NECK: No JVD BREAST: small nodule noted on lower inner region of right breast, L breast normal without masses or lesions LUNGS: CTA, no wheezes HEART: RRR, no murmurs ABDOMEN: Soft, nontender, BS present MUSCULOSKELETAL: No CVA Tenderness EXTREMITIES: 2+ pulses, no edema. NEUROLOGICAL: Cranial nerves II-XII intact. Laboratory Results - last 24 hr 07/21/18 07/21/18 07/21/18 05:16 05:30 05:30 WBC 7.8 RBC 3.13 L Hgb 9.5 L Hct 28.5 L MCV 91.2 MCH 30.3 MCHC 33.3 RDW 17.3 H Plt Count 193 MPV 7.8 Absolute Neuts (auto) 4.3 Neutrophils % 54.3 Lymphocytes % 34.5 Monocytes % 7.3 Eosinophils % 3.0 D Basophils % 0.9 Nucleated RBC % 0 Sodium 138 Potassium 4.0 Chloride 107 Carbon Dioxide 24 Anion Gap 7 L BUN 20 H Creatinine 0.9 Creat Clearance w eGFR 62.64 POC Glucometer 109 Random Glucose 113 H Calcium 8.9 Magnesium 1.9 Albumin 3.3 L 07/21/18 12:16 WBC RBC Hgb Hct MCV MCH MCHC RDW Plt Count MPV Absolute Neuts (auto) Neutrophils % Lymphocytes % Monocytes % Eosinophils % Basophils % Nucleated RBC % Sodium Potassium Chloride Carbon Dioxide Anion Gap BUN Creatinine Creat Clearance w eGFR POC Glucometer 112 Random Glucose Calcium Magnesium Albumin Active Medications Generic Name Dose Route Start Last Admin Trade Name Freq PRN Reason Stop Dose Admin Amlodipine Besylate 2.5 mg 07/21/18 12:30 07/21/18 12:49 Norvasc - PO 2.5 mg DAILY [facility] Administration Aspirin 81 mg 07/19/18 10:00 07/21/18 09:33 Asa - PO 81 mg DAILY [facility] Administration Cholecalciferol 400 unit 07/19/18 10:00 07/21/18 12:48 Vitamin D3 - PO 400 unit DAILY [facility] Administration Ferrous Sulfate 325 mg 07/19/18 10:00 07/21/18 09:32 Feosol - PO 325 mg DAILY [facility] Administration Sodium Chloride 1,000 mls @ 42 mls/hr 07/19/18 01:45 07/20/18 01:44 Normal Saline - IV 42 mls/hr ASDIR [facility] Administration Insulin Aspart 1 vial 07/19/18 07:00 07/21/18 12:49 Novolog Vial Sliding Scale - SQ Not Given ACHS [facility] Protocol Isosorbide Mononitrate 30 mg 07/19/18 10:00 07/21/18 09:32 Imdur - PO 30 mg BID [facility] Administration Magnesium Oxide 400 mg 07/20/18 10:00 07/21/18 09:33 Mag-Ox - PO 400 mg DAILY [facility] Administration Metoprolol Tartrate 50 mg 07/19/18 10:00 07/21/18 09:32 Lopressor - PO 50 mg BID [facility] Administration Multivitamins 1 each 07/19/18 10:00 07/21/18 12:49 Total B With C - PO 1 each DAILY [facility] Administration Multivitamins/Minerals/Vitamin C 1 tab 07/19/18 10:00 07/21/18 09:32 Tab-A-Vit - PO 1 tab DAILY [facility] Administration Rsydc-1-Yfjp Ethyl Esters 1 gm 07/19/18 10:00 07/21/18 09:32 Lovaza - PO 1 gm DAILY [facility] Administration Ondansetron HCl 4 mg 07/19/18 14:28 Zofran Odt - SL Q6H PRN NAUSEA AND/OR VOMITING Pantoprazole Sodium 40 mg 07/19/18 10:00 07/21/18 09:32 Protonix - PO 40 mg DAILY [facility] Administration Sodium Chloride 1 gm 07/19/18 21:45 07/21/18 12:48 Sodium Chloride Tablet - PO 1 gm DAILY [facility] Administration Valsartan 320 mg 07/19/18 10:00 07/21/18 09:32 Diovan - PO 320 mg DAILY [facility] Administration ASSESSMENT/PLAN: 67 yr old female with hx ovarian CA s/p total hysterectomy on chemo with niraparib, DM, HTN, HLD, diabetes admitted for hypertensive encephalopathy. Hypertensive Encephalopathy: BP improved this AM, was 155/64 on my examination -per Dr. Valdovinos, would hold niraparib in the event this episode is due to hypertensive urgency from chemotherapy -on valsartan 320 -amlodipine 2.5 R Breast Nodule: will discuss with Dr. Browne about previous studies done on the breast and followup management Will Discuss with Dr. Browne Visit type - Emergency Visit Emergency Visit: No - New Patient This patient is new to me today: Yes Date on this admission: 07/21/18 - Critical Care Critical Care patient: No
--- NOTE | 2018-07-21 14:57 | PN ---
Progress Note (short form) - Note Progress Note: Renal follow up for Hyponatremia Pt seen and examined at the bedside awake and alert no acute complaints denies feeling confused, no lethargy tolerating oral diet Vital Signs Temperature 97.8 F 07/21/18 09:00 Pulse Rate 61 07/21/18 09:00 Respiratory Rate 20 07/21/18 11:00 Blood Pressure 181/62 H 07/21/18 09:00 O2 Sat by Pulse Oximetry (%) 95 07/21/18 11:00 Intake & Output 07/18/18 07/19/18 07/20/18 07/21/18 23:59 23:59 23:59 23:59 Intake Total 240 Balance 240 Weight 77.111 kg 77.111 kg NAD awake and alert neck supple RRR, no M/R CTA soft NT/ND no LE edema, clubbing or cyanosis CBC, BMP 07/21/18 05:30 07/21/18 05:30 Current Medications Amlodipine Besylate (Norvasc -) 2.5 mg PO DAILY [facility] Last Admin: 07/21/18 12:49 Dose: 2.5 mg Aspirin (Asa -) 81 mg PO DAILY [facility] Last Admin: 07/21/18 09:33 Dose: 81 mg Cholecalciferol (Vitamin D3 -) 400 unit PO DAILY [facility] Last Admin: 07/21/18 12:48 Dose: 400 unit Ferrous Sulfate (Feosol -) 325 mg PO DAILY [facility] Last Admin: 07/21/18 09:32 Dose: 325 mg Sodium Chloride (Normal Saline -) 1,000 mls @ 42 mls/hr IV ASDIR [facility] Last Admin: 07/20/18 01:44 Dose: 42 mls/hr Insulin Aspart (Novolog Vial Sliding Scale -) 1 vial SQ ACHS [facility]; Protocol Last Admin: 07/21/18 12:49 Dose: Not Given Isosorbide Mononitrate (Imdur -) 30 mg PO BID [facility] Last Admin: 07/21/18 09:32 Dose: 30 mg Magnesium Oxide (Mag-Ox -) 400 mg PO DAILY [facility] Last Admin: 07/21/18 09:33 Dose: 400 mg Metoprolol Tartrate (Lopressor -) 50 mg PO BID [facility] Last Admin: 07/21/18 09:32 Dose: 50 mg Multivitamins (Total B With C -) 1 each PO DAILY [facility] Last Admin: 07/21/18 12:49 Dose: 1 each Multivitamins/Minerals/Vitamin C (Tab-A-Vit -) 1 tab PO DAILY [facility] Last Admin: 07/21/18 09:32 Dose: 1 tab Srvlo-4-Oroq Ethyl Esters (Lovaza -) 1 gm PO DAILY [facility] Last Admin: 07/21/18 09:32 Dose: 1 gm Ondansetron HCl (Zofran Odt -) 4 mg SL Q6H PRN PRN Reason: NAUSEA AND/OR VOMITING Pantoprazole Sodium (Protonix -) 40 mg PO DAILY [facility] Last Admin: 07/21/18 09:32 Dose: 40 mg Sodium Chloride (Sodium Chloride Tablet -) 1 gm PO DAILY [facility] Last Admin: 07/21/18 12:48 Dose: 1 gm Valsartan (Diovan -) 320 mg PO DAILY [facility] Last Admin: 07/21/18 09:32 Dose: 320 mg 67 year old woman with hx fo Ovarian Ca s/p hysterectomy and chemo, Hypertension , HLD, DM presents with AMS and hypertensive emergency and noted to have hyponateremia. #Acute Hyponatremia now resolved #Hypertensive emergency #AMS #Ovarian Ca on recent chemo serum Na remains stable BP is above goal. Amlodipine added by Cardiology. Will discontinue IVF and salt tabs as they may be contributing to hypertension Trend electrolytes off salt tabs Chemo to be adjusted per Oncology Emmanuel Cordero DO
--- NOTE | 2018-07-21 17:20 | PN ---
Teaching Attending Note Name of Resident: Martin Kasper ATTENDING PHYSICIAN STATEMENT I saw and evaluated the patient. I reviewed the resident's note and discussed the case with the resident. I agree with the resident's findings and plan as documented. SUBJECTIVE: Patient seen and examined No headaches, nausea, emesis Last Vital Signs Temp Pulse Resp BP Pulse Ox 98.2 F 58 L 20 182/69 H 95 07/21/18 13:00 07/21/18 13:00 07/21/18 13:00 07/21/18 13:00 07/21/18 11:00 HEENT: ESTEBAN, EOM Intact Oropharynx: No thrush, No mucositis Neck: Supple Nodes: Without adenopathy Breasts: thickening 3:00 right breast Cor: RSR, No murmurs, No gallops Lungs: Clear to P&A Abd: Soft, Normal bowel sounds, No organomegaly,surgical scars Ext:No significant edema Skin: No rashes, Integument intact CBC, BMP 07/21/18 05:30 07/21/18 05:30 Current Medications Generic Name Dose Route Start Last Admin Trade Name Freq PRN Reason Stop Dose Admin Amlodipine Besylate 2.5 mg 07/21/18 12:30 07/21/18 12:49 Norvasc - PO 2.5 mg DAILY [facility] Administration Aspirin 81 mg 07/19/18 10:00 07/21/18 09:33 Asa - PO 81 mg DAILY [facility] Administration Cholecalciferol 400 unit 07/19/18 10:00 07/21/18 12:48 Vitamin D3 - PO 400 unit DAILY [facility] Administration Ferrous Sulfate 325 mg 07/19/18 10:00 07/21/18 09:32 Feosol - PO 325 mg DAILY [facility] Administration Insulin Aspart 1 vial 07/19/18 07:00 07/21/18 12:49 Novolog Vial Sliding Scale - SQ Not Given ACHS [facility] Protocol Isosorbide Mononitrate 30 mg 07/19/18 10:00 07/21/18 09:32 Imdur - PO 30 mg BID [facility] Administration Magnesium Oxide 400 mg 07/20/18 10:00 07/21/18 09:33 Mag-Ox - PO 400 mg DAILY [facility] Administration Metoprolol Tartrate 50 mg 07/19/18 10:00 07/21/18 09:32 Lopressor - PO 50 mg BID [facility] Administration Multivitamins 1 each 07/19/18 10:00 07/21/18 12:49 Total B With C - PO 1 each DAILY [facility] Administration Multivitamins/Minerals/Vitamin C 1 tab 07/19/18 10:00 07/21/18 09:32 Tab-A-Vit - PO 1 tab DAILY [facility] Administration Ezszm-2-Dtle Ethyl Esters 1 gm 07/19/18 10:00 07/21/18 09:32 Lovaza - PO 1 gm DAILY [facility] Administration Ondansetron HCl 4 mg 07/19/18 14:28 Zofran Odt - SL Q6H PRN NAUSEA AND/OR VOMITING Pantoprazole Sodium 40 mg 07/19/18 10:00 07/21/18 09:32 Protonix - PO 40 mg DAILY [facility] Administration Valsartan 320 mg 07/19/18 10:00 07/21/18 09:32 Diovan - PO 320 mg DAILY [facility] Administration Impression: Ovarian ca - s/p TAHBSO on niraparib -now being held Hypertensive crisis- still with elevated BP Plan: Continued BP management Resume treatment in future at [facility]. OBJECTIVE: ASSESSMENT AND PLAN:
--- NOTE | 2018-07-21 23:31 | PN ---
Progress Note (short form) - Note Progress Note: Patient seen and examined in her room she is alone -- cognition seem improved today but still easily confused Vital Signs Period Temp Pulse Resp BP Sys/Elizondo Pulse Ox Last 24 Hr 97.1 F-98.6 F 60-71 17-20 144-192/42-83 97-100 sitting up / speech fluent ambulates without assistance motor strength equal 5/5 neck supple / no meningeal signs heart s1/S2 reg 2/6 SM lungs clear bilat abd soft ext no edema CBC, BMP 07/21/18 05:30 07/21/18 05:30 CBC, BMP 07/20/18 05:05 07/20/18 05:05 CBC, BMP 07/19/18 07:30 07/19/18 07:30 Microbiology 07/18/18 18:24 Blood - Peripheral Venous Blood Culture - Preliminary NO GROWTH OBTAINED AFTER 72 HOURS, INCUBATION TO CONTINUE FOR 2 DAYS. 07/18/18 18:29 Blood - Peripheral Venous Blood Culture - Preliminary NO GROWTH OBTAINED AFTER 72 HOURS, INCUBATION TO CONTINUE FOR 2 DAYS. 07/18/18 20:11 Urine - Urine Clean Catch Urine Culture - Final NO GROWTH OBTAINED Active Medications Amlodipine Besylate (Norvasc -) 2.5 mg PO DAILY [facility] Last Admin: 07/21/18 12:49 Dose: 2.5 mg Aspirin (Asa -) 81 mg PO DAILY [facility] Last Admin: 07/21/18 09:33 Dose: 81 mg Cholecalciferol (Vitamin D3 -) 400 unit PO DAILY [facility] Last Admin: 07/21/18 12:48 Dose: 400 unit Ferrous Sulfate (Feosol -) 325 mg PO DAILY [facility] Last Admin: 07/21/18 09:32 Dose: 325 mg Insulin Aspart (Novolog Vial Sliding Scale -) 1 vial SQ ACHS [facility]; Protocol Last Admin: 07/21/18 21:37 Dose: Not Given Isosorbide Mononitrate (Imdur -) 30 mg PO BID [facility] Last Admin: 07/21/18 21:37 Dose: 30 mg Magnesium Oxide (Mag-Ox -) 400 mg PO DAILY [facility] Last Admin: 07/21/18 09:33 Dose: 400 mg Metoprolol Tartrate (Lopressor -) 50 mg PO BID [facility] Last Admin: 07/21/18 21:37 Dose: 50 mg Multivitamins (Total B With C -) 1 each PO DAILY [facility] Last Admin: 07/21/18 12:49 Dose: 1 each Multivitamins/Minerals/Vitamin C (Tab-A-Vit -) 1 tab PO DAILY [facility] Last Admin: 07/21/18 09:32 Dose: 1 tab Ibjrc-9-Wfet Ethyl Esters (Lovaza -) 1 gm PO DAILY [facility] Last Admin: 07/21/18 09:32 Dose: 1 gm Ondansetron HCl (Zofran Odt -) 4 mg SL Q6H PRN PRN Reason: NAUSEA AND/OR VOMITING Pantoprazole Sodium (Protonix -) 40 mg PO DAILY [facility] Last Admin: 07/21/18 09:32 Dose: 40 mg Valsartan (Diovan -) 320 mg PO DAILY [facility] Last Admin: 07/21/18 09:32 Dose: 320 mg 67F h/o Ovarian Ca, (2011) s/p total hysterectomy (on Chemo x 1 year stopped on Friday), HTN, HLD, DM p/w HTN, alt mental status. Son reports hx of low sodium "for many years "-- patient is followed at [facility] for oncology. Son reports patient with DX of peritoneal Ca s/p surgical debulking and chemo tx -- she is treated at [facility] The son feels patient clinically deteriorates when she takes chemo meds # altered mental status CT negative for acute event Known to Dr Zuleta, will await follow up MRI ordered #HTN urgency tx with labetolol / NTG paste/ Diovan with improved control home meds restarted continue to monitor BP may not need adjustments once meds resumed #Hyponatermia long standing likely 2/2 to chemo meds start NaCL pills trend Na monitor mental status with correction of Na #DM followed by Endo consult appreciated meds adjusted per Endo #Peritoneal malingancy s/p debulking / on PO chemo (unsure of name ) discussed with family will request Onc opinion
--- NOTE | 2018-07-21 23:50 | PN ---
Progress Note, Physician Chief Complaint: feeling better appetite improved - Current Medication List Current Medications: Active Medications Amlodipine Besylate (Norvasc -) 2.5 mg PO DAILY [facility] Last Admin: 07/21/18 12:49 Dose: 2.5 mg Aspirin (Asa -) 81 mg PO DAILY [facility] Last Admin: 07/21/18 09:33 Dose: 81 mg Cholecalciferol (Vitamin D3 -) 400 unit PO DAILY [facility] Last Admin: 07/21/18 12:48 Dose: 400 unit Ferrous Sulfate (Feosol -) 325 mg PO DAILY [facility] Last Admin: 07/21/18 09:32 Dose: 325 mg Insulin Aspart (Novolog Vial Sliding Scale -) 1 vial SQ ACHS [facility]; Protocol Last Admin: 07/21/18 21:37 Dose: Not Given Isosorbide Mononitrate (Imdur -) 30 mg PO BID [facility] Last Admin: 07/21/18 21:37 Dose: 30 mg Magnesium Oxide (Mag-Ox -) 400 mg PO DAILY [facility] Last Admin: 07/21/18 09:33 Dose: 400 mg Metoprolol Tartrate (Lopressor -) 50 mg PO BID [facility] Last Admin: 07/21/18 21:37 Dose: 50 mg Multivitamins (Total B With C -) 1 each PO DAILY [facility] Last Admin: 07/21/18 12:49 Dose: 1 each Multivitamins/Minerals/Vitamin C (Tab-A-Vit -) 1 tab PO DAILY [facility] Last Admin: 07/21/18 09:32 Dose: 1 tab Sbgab-0-Toea Ethyl Esters (Lovaza -) 1 gm PO DAILY [facility] Last Admin: 07/21/18 09:32 Dose: 1 gm Ondansetron HCl (Zofran Odt -) 4 mg SL Q6H PRN PRN Reason: NAUSEA AND/OR VOMITING Pantoprazole Sodium (Protonix -) 40 mg PO DAILY [facility] Last Admin: 07/21/18 09:32 Dose: 40 mg Valsartan (Diovan -) 320 mg PO DAILY [facility] Last Admin: 07/21/18 09:32 Dose: 320 mg - Objective Vital Signs: Vital Signs Temperature 98.1 F 07/21/18 22:00 Pulse Rate 62 07/21/18 22:00 Respiratory Rate 20 07/21/18 22:00 Blood Pressure 190/70 H 07/21/18 22:00 O2 Sat by Pulse Oximetry (%) 98 07/21/18 21:00 Constitutional: Yes: Calm Eyes: Yes: EOM Intact HENT: Yes: Normocephalic Neck: Yes: Trachea Midline Cardiovascular: Yes: Regular Rate and Rhythm Respiratory: Yes: CTA Bilaterally Gastrointestinal: Yes: Normal Bowel Sounds ...Rectal Exam: Yes: Deferred Genitourinary: Yes: WNL Musculoskeletal: Yes: Back Pain, Joint Stiffness, Joint Swelling, Muscle Weakness Extremities: Yes: WNL Edema: No Peripheral Pulses WNL: Yes Neurological: Yes: Alert, Oriented Labs: CBC, BMP 07/21/18 05:30 07/21/18 05:30 INR, PTT INR 1.13 (0.83-1.09) H 07/18/18 18:53 Problem List - Problems (1) Diabetes mellitus Code(s): E11.9 - TYPE 2 DIABETES MELLITUS WITHOUT COMPLICATIONS (2) Hypertensive encephalopathy Code(s): I67.4 - HYPERTENSIVE ENCEPHALOPATHY (3) Hypertensive urgency Code(s): I16.0 - HYPERTENSIVE URGENCY (4) Hyponatremia Code(s): E87.1 - HYPO-OSMOLALITY AND HYPONATREMIA (5) Ovarian cancer Code(s): C56.9 - MALIGNANT NEOPLASM OF UNSPECIFIED OVARY (6) Nausea & vomiting Code(s): R11.2 - NAUSEA WITH VOMITING, UNSPECIFIED Qualifiers: Vomiting type: unspecified Vomiting Intractability: non-intractable Qualified Code(s): R11.2 - Nausea with vomiting, unspecified Assessment/Plan Current Active Problems Altered mental status (Acute) Diabetes mellitus (Acute) Hypertensive encephalopathy (Acute) Hypertensive urgency (Acute) Hyponatremia (Acute) Ovarian cancer (Acute) Abnormal Lab Results 07/21/18 07/21/18 05:30 05:30 RBC 3.13 L Hgb 9.5 L Hct 28.5 L RDW 17.3 H Anion Gap 7 L BUN 20 H Random Glucose 113 H Albumin 3.3 L Laboratory Results - last 24 hr 07/20/18 07/21/18 07/21/18 05:05 05:16 05:30 WBC 7.8 RBC 3.13 L Hgb 9.5 L Hct 28.5 L MCV 91.2 MCH 30.3 MCHC 33.3 RDW 17.3 H Plt Count 193 MPV 7.8 Absolute Neuts (auto) 4.3 Neutrophils % 54.3 Lymphocytes % 34.5 Monocytes % 7.3 Eosinophils % 3.0 D Basophils % 0.9 Nucleated RBC % 0 Sodium Potassium Chloride Carbon Dioxide Anion Gap BUN Creatinine Creat Clearance w eGFR POC Glucometer 109 Random Glucose Calcium Magnesium Albumin ACTH 18.7 07/21/18 07/21/18 07/21/18 05:30 12:16 17:27 WBC RBC Hgb Hct MCV MCH MCHC RDW Plt Count MPV Absolute Neuts (auto) Neutrophils % Lymphocytes % Monocytes % Eosinophils % Basophils % Nucleated RBC % Sodium 138 Potassium 4.0 Chloride 107 Carbon Dioxide 24 Anion Gap 7 L BUN 20 H Creatinine 0.9 Creat Clearance w eGFR 62.64 POC Glucometer 112 116 Random Glucose 113 H Calcium 8.9 Magnesium 1.9 Albumin 3.3 L ACTH 07/21/18 21:36 WBC RBC Hgb Hct MCV MCH MCHC RDW Plt Count MPV Absolute Neuts (auto) Neutrophils % Lymphocytes % Monocytes % Eosinophils % Basophils % Nucleated RBC % Sodium Potassium Chloride Carbon Dioxide Anion Gap BUN Creatinine Creat Clearance w eGFR POC Glucometer 149 Random Glucose Calcium Magnesium Albumin ACTH plan: bgm qid n ovololg scale continue levemir 10 units am 24 hr urine vma beta nicholas calcium channel nicholas arb await cortisol/acth
[2018-07-22] MEDS ORDERED: amLODIPine BESYLATE 2.5 MG TABLET (FP) PO SCH (10:25)
--- NOTE | 2018-07-22 10:27 | PN ---
Progress Note (short form) - Note Progress Note: s: no chest pain, palps, dizziness. Current Medications Amlodipine Besylate (Norvasc -) 5 mg PO DAILY [facility] Aspirin (Asa -) 81 mg PO DAILY [facility] Last Admin: 07/21/18 09:33 Dose: 81 mg Cholecalciferol (Vitamin D3 -) 400 unit PO DAILY [facility] Last Admin: 07/21/18 12:48 Dose: 400 unit Ferrous Sulfate (Feosol -) 325 mg PO DAILY [facility] Last Admin: 07/21/18 09:32 Dose: 325 mg Insulin Aspart (Novolog Vial Sliding Scale -) 1 vial SQ ACHS [facility]; Protocol Last Admin: 07/21/18 21:37 Dose: Not Given Isosorbide Mononitrate (Imdur -) 30 mg PO BID [facility] Last Admin: 07/21/18 21:37 Dose: 30 mg Magnesium Oxide (Mag-Ox -) 400 mg PO DAILY [facility] Last Admin: 07/21/18 09:33 Dose: 400 mg Metoprolol Tartrate (Lopressor -) 50 mg PO BID [facility] Last Admin: 07/21/18 21:37 Dose: 50 mg Multivitamins (Total B With C -) 1 each PO DAILY [facility] Last Admin: 07/21/18 12:49 Dose: 1 each Multivitamins/Minerals/Vitamin C (Tab-A-Vit -) 1 tab PO DAILY [facility] Last Admin: 07/21/18 09:32 Dose: 1 tab Mntrt-7-Maty Ethyl Esters (Lovaza -) 1 gm PO DAILY [facility] Last Admin: 07/21/18 09:32 Dose: 1 gm Ondansetron HCl (Zofran Odt -) 4 mg SL Q6H PRN PRN Reason: NAUSEA AND/OR VOMITING Pantoprazole Sodium (Protonix -) 40 mg PO DAILY [facility] Last Admin: 07/21/18 09:32 Dose: 40 mg Valsartan (Diovan -) 320 mg PO DAILY [facility] Last Admin: 07/21/18 09:32 Dose: 320 mg - Objective Vital Signs: Vital Signs Period Temp Pulse Resp BP Sys/Elizondo Pulse Ox Last 24 Hr 97.8 F-98.2 F 58-66 18-20 178-195/64-82 95-98 Constitutional: Yes: Well Nourished, No Distress, Calm Cardiovascular: Yes: Regular Rate and Rhythm, S1, S2. No: JVD, Gallop, Murmur Respiratory: Yes: Regular, CTA Bilaterally. No: Accessory Muscle Use, Rales, Wheezes Extremities: No: Cold Edema: No Neurological: Yes: Alert. No: Seizure Psychiatric: No: Agitated Assessment/Plan EKG: sinus, nl intervals, no acute process CXR: no acute process tele: sinus 67F h/o Ovarian Ca, (2011) s/p total hysterectomy (on Chemo x 1 year stopped on Friday), HTN, HLD, DM p/w HTN, alt mental status. HTN urgency - improved with IV labetolol, NTG paste and diovan in ER - likely due to noncompliance with meds - restarted home meds - BP improved yesterday however still with high BPs - amlodipine started - increase to 5 mg daily today Alt mental status - neuro consulted - workup per primary hyponatremia - Na 128 - IVF, manage per primary, likely 2/2 chemo DM -manage per primary
--- NOTE | 2018-07-22 10:36 | PN ---
Physical Exam: SUBJECTIVE: Patient seen and examined at bedside. OBJECTIVE: Vital Signs Period Temp Pulse Resp BP Sys/Elizondo Pulse Ox Last 24 Hr 97.8 F-98.2 F 58-66 18-20 178-195/64-82 95-98 GENERAL: A&Ox3, no acute distress EYES: PERRLA, EOMI ENT: Moist mucus membranes NECK: No JVD LUNGS: CTA, no wheezes HEART: RRR, no murmurs ABDOMEN: Soft, nontender, BS present MUSCULOSKELETAL: No CVA Tenderness EXTREMITIES: 2+ pulses, no edema. NEUROLOGICAL: Cranial nerves II-XII intact. Laboratory Results - last 24 hr 07/19/18 07/20/18 07/20/18 21:40 05:05 05:05 POC Glucometer Cortisol AM Sample 6.4 Cortisol PM Sample 4.1 ACTH 18.7 07/21/18 07/21/18 07/21/18 12:16 17:27 21:36 POC Glucometer 112 116 149 Cortisol AM Sample Cortisol PM Sample ACTH 07/22/18 05:38 POC Glucometer 133 Cortisol AM Sample Cortisol PM Sample ACTH Active Medications Generic Name Dose Route Start Last Admin Trade Name Freq PRN Reason Stop Dose Admin Amlodipine Besylate 5 mg 07/22/18 10:25 Norvasc - PO DAILY [facility] Aspirin 81 mg 07/19/18 10:00 07/21/18 09:33 Asa - PO 81 mg DAILY [facility] Administration Cholecalciferol 400 unit 07/19/18 10:00 07/21/18 12:48 Vitamin D3 - PO 400 unit DAILY [facility] Administration Ferrous Sulfate 325 mg 07/19/18 10:00 07/21/18 09:32 Feosol - PO 325 mg DAILY [facility] Administration Insulin Aspart 1 vial 07/19/18 07:00 07/21/18 21:37 Novolog Vial Sliding Scale - SQ Not Given ACHS [facility] Protocol Isosorbide Mononitrate 30 mg 07/19/18 10:00 07/21/18 21:37 Imdur - PO 30 mg BID [facility] Administration Magnesium Oxide 400 mg 07/20/18 10:00 07/21/18 09:33 Mag-Ox - PO 400 mg DAILY [facility] Administration Metoprolol Tartrate 50 mg 07/19/18 10:00 07/21/18 21:37 Lopressor - PO 50 mg BID [facility] Administration Multivitamins 1 each 07/19/18 10:00 07/21/18 12:49 Total B With C - PO 1 each DAILY [facility] Administration Multivitamins/Minerals/Vitamin C 1 tab 07/19/18 10:00 07/21/18 09:32 Tab-A-Vit - PO 1 tab DAILY [facility] Administration Csnrr-6-Hcsc Ethyl Esters 1 gm 07/19/18 10:00 07/21/18 09:32 Lovaza - PO 1 gm DAILY [facility] Administration Ondansetron HCl 4 mg 07/19/18 14:28 Zofran Odt - SL Q6H PRN NAUSEA AND/OR VOMITING Pantoprazole Sodium 40 mg 07/19/18 10:00 07/21/18 09:32 Protonix - PO 40 mg DAILY [facility] Administration Valsartan 320 mg 07/19/18 10:00 07/21/18 09:32 Diovan - PO 320 mg DAILY [facility] Administration ASSESSMENT/PLAN: 67 yr old female with hx ovarian CA s/p total hysterectomy on chemo with niraparib, DM, HTN, HLD, diabetes admitted for hypertensive encephalopathy. Hypertensive Encephalopathy: BP improved this AM, was 155/64 on my examination -per Dr. Valdovinos, would hold niraparib in the event this episode is due to hypertensive urgency from chemotherapy -on valsartan 320 -amlodipine 2.5 R Breast Nodule: will discuss with Dr. Browne about previous studies done on the breast and followup management Will Discuss with Dr. Browne
[2018-07-22] MEDS ORDERED: SUMAtriptan SUCCINATE 50 MG TABLET PO PRN (11:39)
--- NOTE | 2018-07-22 11:49 | PN ---
Progress Note (short form) - Note Progress Note: NEUROLOGY PROGRESS: Pt seen and examined. Reports generally sleeps well at night. Slept well last night. Still reporting L sided "aching" headache with photophobia and phonophobia. Less nausea and vomiting. 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 P50s. NEURO: MS/speech: Normal CN II-XII: Normal Motor: No drift or tremor. Normal strength, tone and bulk. Normal reflexes incl. AJ's. Toes downgoing. Coord: No FTN dystaxia Sensory: Normal. Romberg neg. Gait: Normal IMP: Normal neurological exam. Migraine headaches. SUGGEST: Increase Metoprolol to 75 mg BID for BP control and migraine prophylaxis (follow pulse). (Noted on Imdur 30 mg BID - this may worsen migraine headaches) Start topiramate 25 mg BID x 3 days then 50 mg PO BID. Provide sumatriptan 6 mg SQ, then 50-100 mg PO prn with acute headache Neuro f/u as out patient. Thank you very much, Juan R Zuleta MD
[2018-07-22] MEDS: INSULIN SLIDING SCALE (NOVOLOG) 1 VIAL SQ SCH ×3 (12:14→21:08)
[2018-07-22] MEDS ORDERED: PT OWN MED DRAWER 7, Y5N ONE ×3 (12:18→20:30)
[2018-07-22] MEDS: ISOSORBIDE MONONITRATE 30 MG TAB.SR.24H (FP) PO SCH ×2 (12:30→21:11)
[2018-07-22] MEDS: VITAMIN B COMPLEX W/C COMBO TABLET (FP) PO SCH (12:30)
[2018-07-22] MEDS: MAGNESIUM OXIDE 400 MG TABLET (FP) PO SCH (12:30)
[2018-07-22] MEDS: ASPIRIN 81 MG CHEWABLE TABLETS PO SCH (12:30)
[2018-07-22] MEDS: CHOLECALCIFEROL (VITAMIN D3) 400 UNIT TABLET (FP) PO SCH (12:30)
[2018-07-22] MEDS: OMEGA-3 ACID ETHYL ESTERS (FATTY-ACIDS) 1 GM CAPSULE (FP) PO SCH (12:30)
[2018-07-22] MEDS: FERROUS SO4 325 MG TABLET (FP) PO SCH (12:30)
[2018-07-22] MEDS: MULTIVITAMINS (DAILY MVI) TABLET (FP) PO SCH (12:31)
[2018-07-22] MEDS: PANTOPRAZOLE 40 MG TABLET (FP) PO SCH (12:31)
[2018-07-22] MEDS: VALSARTAN 160 MG TABLET (UD) PO SCH (12:32)
[2018-07-22] MEDS: METOPROLOL TARTRATE 50 MG TABLET (FP) PO SCH ×3 (12:33→21:11)
[2018-07-22] MEDS ORDERED: SUMATRIPTAN SUCCINATE 6 MG/0.5 ML VIAL SQ ONE (14:00)
[2018-07-22] MEDS: amLODIPine BESYLATE 2.5 MG TABLET (FP) PO SCH (15:41)
[2018-07-22] MEDS: TOPIRAMATE 25 MG TABLET (FP) PO SCH (21:11)
[2018-07-23 06:03] VITALS: TEMP 97.5
[2018-07-23 07:49] LABS: BASO % 0.8 % (0-2.0); EOS % 3.6 % (0-4.5); HEMATOCRIT 30.1 % (32.4-45.2); HEMOGLOBIN 10.1 GM/dL (10.7-15.3); LYMPH % 31.5 % (8-40); MCH 30.9 pg (25.7-33.7); MCHC 33.6 g/dl (32.0-36.0); MEAN CELL VOLUME 91.8 fl (80-96); MEAN PLT VOLUME 7.8 fl (7.5-11.1); MONO % 7.6 % (3.8-10.2); NEUT % 56.5 % (42.8-82.8); PLATELET COUNT 215 K/MM3 (134-434); RBC 3.28 M/mm3 (3.60-5.2); RDW 17.7 % (11.6-15.6); WHITE BLOOD COUNT 7.9 K/mm3 (4.0-10.0)
[2018-07-23 08:23] LABS: ANION GAP 10 MMOL/L (8-16); BLOOD UREA NITROGEN 20 mg/dL (7-18); CALCIUM 9.1 mg/dL (8.5-10.1); CHLORIDE 105 mmol/L (98-107); CO2 26 mmol/L (21-32); GLUCOSE,RANDOM 138 mg/dL (74-106); POTASSIUM 4.1 mmol/L (3.5-5.1); SODIUM 140 mmol/L (136-145)
[2018-07-23] MEDS ORDERED: amLODIPine BESYLATE 10 MG TABLET (FP) PO SCH (09:27)
--- NOTE | 2018-07-23 11:24 | PN ---
Progress Note (short form) - Note Progress Note: s: no chest pain, palps, dizziness, sob Current Medications Generic Name Dose Route Start Last Admin Trade Name Freq PRN Reason Stop Dose Admin Amlodipine Besylate 10 mg 07/23/18 09:27 Norvasc - PO DAILY [facility] Aspirin 81 mg 07/19/18 10:00 07/22/18 12:30 Asa - PO 81 mg DAILY [facility] Administration Cholecalciferol 400 unit 07/19/18 10:00 07/22/18 12:30 Vitamin D3 - PO 400 unit DAILY [facility] Administration Ferrous Sulfate 325 mg 07/19/18 10:00 07/22/18 12:30 Feosol - PO 325 mg DAILY [facility] Administration Insulin Aspart 1 vial 07/19/18 07:00 07/22/18 21:08 Novolog Vial Sliding Scale - SQ Not Given ACHS [facility] Protocol Isosorbide Mononitrate 30 mg 07/19/18 10:00 07/22/18 21:11 Imdur - PO 30 mg BID [facility] Administration Magnesium Oxide 400 mg 07/20/18 10:00 07/22/18 12:30 Mag-Ox - PO 400 mg DAILY [facility] Administration Metoprolol Tartrate 75 mg 07/22/18 11:44 07/22/18 21:11 Lopressor - PO 75 mg BID [facility] Administration Multivitamins 1 each 07/19/18 10:00 07/22/18 12:30 Total B With C - PO 1 each DAILY [facility] Administration Multivitamins/Minerals/Vitamin C 1 tab 07/19/18 10:00 07/22/18 12:31 Tab-A-Vit - PO 1 tab DAILY [facility] Administration Dxoac-9-Vdeo Ethyl Esters 1 gm 07/19/18 10:00 07/22/18 12:30 Lovaza - PO 1 gm DAILY [facility] Administration Ondansetron HCl 4 mg 07/19/18 14:28 Zofran Odt - SL Q6H PRN NAUSEA AND/OR VOMITING Pantoprazole Sodium 40 mg 07/19/18 10:00 07/22/18 12:31 Protonix - PO 40 mg DAILY [facility] Administration Sumatriptan Succinate 50 mg 07/22/18 11:39 Imitrex - PO ONCE PRN HEADACHE Topiramate 25 mg 07/22/18 22:00 07/22/18 21:11 Topamax - PO 25 mg BID [facility] Administration Valsartan 320 mg 07/19/18 10:00 07/22/18 12:32 Diovan - PO 320 mg DAILY [facility] Administration - Objective Vital Signs: Vital Signs Period Temp Pulse Resp BP Sys/Elizondo Pulse Ox Last 24 Hr 97.5 F-98.6 F 60-66 18-20 176-189/67-82 98 Constitutional: Yes: Well Nourished, No Distress, Calm Cardiovascular: Yes: Regular Rate and Rhythm, S1, S2. No: JVD, Gallop, Murmur Respiratory: Yes: Regular, CTA Bilaterally. No: Accessory Muscle Use, Rales, Wheezes Extremities: No: Cold Edema: No Neurological: Yes: Alert. No: Seizure Psychiatric: No: Agitated no jaundice diaphoresis CBC, BMP 07/23/18 05:30 07/23/18 05:30 EKG: sinus, nl intervals, no acute process CXR: no acute process tele: sinus Assessment/Plan 67F h/o Ovarian Ca, (2011) s/p total hysterectomy (on Chemo x 1 year stopped on Friday), HTN, HLD, DM p/w HTN, alt mental status. HTN urgency - improved with IV labetolol, NTG paste and diovan in ER - likely due to noncompliance with meds - bp still up, will increase norvasc to 10. cont other htn meds. Alt mental status - neuro consulted - workup per primary hyponatremia - Na 128, likely 2/2 chemo. now normalized.
[2018-07-23] MEDS ORDERED: PT OWN MED DRAWER 7, Y5N ONE (11:25)
[2018-07-23] MEDS: INSULIN SLIDING SCALE (NOVOLOG) 1 VIAL SQ SCH (11:30)
--- NOTE | 2018-07-23 11:49 | DS ---
Physical Examination Vital Signs: Vital Signs Temperature 97.5 F L 07/23/18 06:00 Pulse Rate 60 07/23/18 06:00 Respiratory Rate 18 07/23/18 06:00 Blood Pressure 176/72 H 07/23/18 06:00 O2 Sat by Pulse Oximetry (%) 98 07/22/18 21:00 Findings/Remarks: This is a 67 y/o woman with a PMHx of Ovarian Ca, (2011) s/p total hysterectomy (on Chemo x 1 year stopped on Friday), HTN, HLD, DM. Who presents to the ED for elevated BP and AMS. The son reports, taking the patient to her PCP for elevated BP, where she was advised to stop her chemo pills. The son took patient to the hospital insurance clerk yesterday and who found no abnormal finding. The hospital insurance clerk told him the patient can start taking her chemo pills again. Today, the patient's mental status has progressively worsened, and that her systolic BP was over 200.The patients son also reports he came to the patient' s house to give her medications and found her medication box empty.Patient states she cleaned it out and unsure of what she did with it. The son reports that the patient was very weak and unsteady on her feet. The son denies patient having slurred speech, facial droop or unilateral weakness. The patient denies numbness, tingling or blurred vision. Patient denies fever, chills, cough, SOB, CP, palpitations, AP, N/V/D, constipation, dysuria patint admitted medications adjusted and electrolytes corrected -with resolution of neurological status. MRI no significant for acute pathology. Bp has remained elevated and medication has been adjusted and well tolerated by patient Today she is found sitting in bassem comfortable headache is resolved / mental status is at baseline - A O X3 denies CO /SOB / dizziness. discussed plan of care - agrees close follow up for imprved BP contol and will also follow up and discuss management with oncology at [facility] this discuss has been had with the son Rayray - prior to d/c Constitutional: Yes: Well Nourished, No Distress, Calm Eyes: Yes: Conjunctiva Clear, EOM Intact HENT: Yes: Atraumatic, Normocephalic Neck: Yes: Supple, Trachea Midline Cardiovascular: Yes: Regular Rate and Rhythm Respiratory: Yes: Regular, CTA Bilaterally Gastrointestinal: Yes: Normal Bowel Sounds, Soft, Other (extensive surgical scar midline) ...Rectal Exam: Yes: Deferred Renal/: Yes: WNL Breast(s): Yes: WNL Musculoskeletal: Yes: WNL Extremities: Yes: WNL Edema: No Peripheral Pulses WNL: Yes Integumentary: Yes: WNL Wound/Incision: Yes: Clean/Dry Neurological: Yes: Alert, Oriented ...Motor Strength: WNL Psychiatric: Yes: Alert, Oriented Labs: CBC, BMP 07/23/18 05:30 07/23/18 05:30 Discharge Summary Reason For Visit: HYPERTENSIVE ENCEPHALOPATHY/ALTERED MENTAL STATUS Current Active Problems Altered mental status (Acute) Diabetes mellitus (Acute) Hypertensive encephalopathy (Acute) Hypertensive urgency (Acute) Hyponatremia (Acute) Ovarian cancer (Acute) Condition: Improved - Instructions Disposition: HOME - Home Medications Comprehensive Discharge Medication List: Ambulatory Orders Insulin (Novolog) [Novolog Flexpen -] 0 units SQ ACHS #0 pen 03/18/12 Isosorbide Mononitrate [Isosorbide Mononitrate ER] 30 mg PO BID 01/21/18 Aspirin [ASA -] 81 mg PO DAILY 07/18/18 Ferrous Sulfate 325 mg PO DAILY 07/18/18 Insulin Degludec [Tresiba Flextouch U-100] 0 unit SQ ASDIR 07/18/18 Magnesium 500 mg PO DAILY 07/18/18 Metoprolol Tartrate 75 mg PO BID 07/18/18 [place]-3 Fatty Acids/Fish Oil [Fish Oil 1,000 mg Capsule] 1 each PO DAILY Omeprazole 40 mg PO DAILY 07/18/18 Valsartan 320 mg PO DAILY 07/18/18 Vitamin B Complex 1 each PO DAILY 07/18/18 Norvasc 5 mg q day
[2018-07-23] MEDS: ASPIRIN 81 MG CHEWABLE TABLETS PO SCH (12:13)
[2018-07-23] MEDS: VALSARTAN 160 MG TABLET (UD) PO SCH (12:13)
[2018-07-23] MEDS: ISOSORBIDE MONONITRATE 30 MG TAB.SR.24H (FP) PO SCH (12:14)
[2018-07-23] MEDS: OMEGA-3 ACID ETHYL ESTERS (FATTY-ACIDS) 1 GM CAPSULE (FP) PO SCH (12:14)
[2018-07-23] MEDS: MULTIVITAMINS (DAILY MVI) TABLET (FP) PO SCH (12:14)
[2018-07-23] MEDS: FERROUS SO4 325 MG TABLET (FP) PO SCH (12:14)
[2018-07-23] MEDS: METOPROLOL TARTRATE 50 MG TABLET (FP) PO SCH (12:14)
[2018-07-23] MEDS: PANTOPRAZOLE 40 MG TABLET (FP) PO SCH (12:14)
[2018-07-23] MEDS: MAGNESIUM OXIDE 400 MG TABLET (FP) PO SCH (12:15)
[2018-07-23] MEDS: TOPIRAMATE 25 MG TABLET (FP) PO SCH (12:16)
[2018-07-23] MEDS: CHOLECALCIFEROL (VITAMIN D3) 400 UNIT TABLET (FP) PO SCH (12:16)
[2018-07-23] MEDS: VITAMIN B COMPLEX W/C COMBO TABLET (FP) PO SCH (12:16)
[2018-07-23 14:24] VITALS: BP 178/72; PULSE 68
== END 2018-07-23 14:27 | disposition home or self-care (01) | DRG 78 ==
LOC: JER 17:38 → JERBED 23:32 → J4W 07-20 15:29
PROVIDERS: ADMIT Family Medicine; ATTEND Family Medicine
DX: I67.4 Hypertensive encephalopathy (principal); E87.1 Hypo-osmolality and hyponatremia; C56.9 Malignant neoplasm of unspecified ovary; I16.0 Hypertensive urgency; G43.909 Migraine, unspecified, not intractable, without status migrainosus; T45.1X5A Adverse effect of antineoplastic and immunosuppressive drugs, initial encounter; E78.5 Hyperlipidemia, unspecified; E11.9 Type 2 diabetes mellitus without complications; R41.82 Altered mental status, unspecified; E66.9 Obesity, unspecified; Z68.31 Body mass index [BMI] 31.0-31.9, adult
CPT/HCPCS: 36415; 70450-TC; 70551-TC; 71045-TC-FY; 80048; 80053; 81003; 82024; 82040; 82140; 82533; 82550; 82553; 82803; 82962; 83036; 83605; 83735; 83930; 83935; 84100; 84439; 84443; 84484; 85025; 85027; 85610; 85730; 87040; 87086; 93005; 93010; 97116-GP; 97161-GP; 99285-25; J0131; J7030

== ENCOUNTER 2019-05-07 18:00 | Observation (INO) | payer OTHER ==
--- NOTE | 2019-05-07 18:12 | PDOC ---
Rapid Medical Evaluation Time Seen by Provider: 05/07/19 18:05 Medical Evaluation: Allergies Allergy/AdvReac Type Severity Reaction Status Date / Time No Known Allergies Allergy Verified 05/07/19 18:07 05/07/19 18:08 I have performed a brief in-person evaluation of this patient. The patient presents with a chief complaint of: Sent in by Dr Tsang (coverage for Dr Hendricks) for blood transfusion. Pt was seen today in PMD's office for clearance for home hospice and had blood work done. Received call that HGB < 7 per son. Pt has h/o ovarian ca, s/p hysterectomy, s/p chemo, HTN and HLD. States pt has appeared more fatigue over past few days Pertinent physical exam findings:stable, appears chronically ill I have ordered the following: labs, s/p T&S from PMD's today (results in [employer]) The patient will proceed to the ED for further evaluation Discharge Disposition - Diagnosis Anemia Qualifiers: Anemia type: unspecified type Qualified Code(s): D64.9 - Anemia, unspecified - Referrals - Patient Instructions - Post Discharge Activity
[2019-05-07 18:48] LABS: BASO % 1.1 % (0-2.0); EOS % 0.9 % (0-4.5); HEMATOCRIT 22.7 % (32.4-45.2); HEMOGLOBIN 7.4 GM/dL (10.7-15.3); LYMPH % 7.9 % (8-40); MCH 26.6 pg (25.7-33.7); MCHC 32.5 g/dl (32.0-36.0); MEAN CELL VOLUME 81.8 fl (80-96); MEAN PLT VOLUME 7.2 fl (7.5-11.1); MONO % 9.3 % (3.8-10.2); NEUT % 80.8 % (42.8-82.8); PLATELET COUNT 556 K/MM3 (134-434); RBC 2.77 M/mm3 (3.60-5.2); RDW 20.4 % (11.6-15.6); WHITE BLOOD COUNT 11.3 K/mm3 (4.0-10.0)
[2019-05-07 19:01] LABS: INR 1.22 (0.83-1.09); PROTHROMBIN TIME (PATIENT) 14.4 SEC (9.7-13.0)
[2019-05-07 19:35] LABS: POTASSIUM 5.5 mmol/L (3.5-5.1)
[2019-05-07 19:36] LABS: ALBUMIN 2.6 g/dl (3.4-5.0); BILIRUBIN,TOTAL 0.6 mg/dL (0.2-1); BLOOD UREA NITROGEN 57.8 mg/dL (7-18); CALCIUM 8.4 mg/dL (8.5-10.1); CREATININE 1.8 mg/dL (0.55-1.3); TOT PROT 6.6 g/dl (6.4-8.2)
[2019-05-07] MEDS: SODIUM ZIRCONIUM CYCLOSILICATE (LOKELMA) 5 GM PACKET PO SCH (21:36)
--- NOTE | 2019-05-07 21:47 | PDOC ---
History of Present Illness - General Chief Complaint: Revisit, Lab Variance Stated Complaint: TO BE TRANSFUSED Time Seen by Provider: 05/07/19 18:05 History Source: Patient Exam Limitations: No Limitations Past History - Past Medical History Allergies/Adverse Reactions: Allergies Allergy/AdvReac Type Severity Reaction Status Date / Time No Known Allergies Allergy Verified 05/07/19 18:07 Home Medications: Ambulatory Orders Insulin (Novolog) [Novolog Flexpen -] 0 units SQ ACHS #0 pen 03/18/12 Isosorbide Mononitrate [Isosorbide Mononitrate ER] 30 mg PO BID 01/21/18 Aspirin [ASA -] 81 mg PO DAILY 07/18/18 Ferrous Sulfate 325 mg PO DAILY 07/18/18 Insulin Degludec [Tresiba Flextouch U-100] 0 unit SQ ASDIR 07/18/18 Magnesium 500 mg PO DAILY 07/18/18 [place]-3 Fatty Acids/Fish Oil [Fish Oil 1,000 mg Capsule] 1 each PO DAILY Omeprazole 40 mg PO DAILY 07/18/18 Valsartan 320 mg PO DAILY 07/18/18 Vitamin B Complex 1 each PO DAILY 07/18/18 Amlodipine Besylate [Norvasc -] 10 mg PO DAILY 30 Days #30 tablet 07/23/18 Cholecalciferol (Vitamin D3) [Vitamin D -] 400 unit PO DAILY tab 07/23/18 Insulin Sliding Scale [Novolog Vial Sliding Scale -] 1 vial SQ ACHS units 07/23 Metoprolol Tartrate [Lopressor -] 75 mg PO BID 30 Days #90 tablet 07/23/18 Multivitamins [Multivit ([facility] Formulary)] 1 tab PO DAILY tab 07/23/18 Ondansetron [Zofran *Odt*] 4 mg SL Q6H PRN tab.rapdis 07/23/18 Sumatriptan Succinate [Imitrex -] 50 mg PO ONCE PRN #9 tablet 07/23/18 Topiramate [Topamax -] 25 mg PO BID 30 Days #60 tablet 07/23/18 Cancer: Yes (Ovarian) Cardiac Disorders: Yes (ASHD) COPD: No Diabetes: Yes GI Disorders: Yes (GERD) HTN: Yes Hypercholesterolemia: Yes - Surgical History Abdominal Surgery: Yes (abdominal hernia repair) - Immunization History Immunization Up to Date: Yes - Psycho Social/Smoking Cessation Hx Smoking Status: No Smoking History: Never smoked Have you smoked in the past 12 months: No Number of Cigarettes Smoked Daily: 0 Hx Alcohol Use: No Drug/Substance Use Hx: No Substance Use Type: None Hx Substance Use Treatment: No *Physical Exam - Vital Signs Last Vital Signs Temp Pulse Resp BP Pulse Ox 98.0 F 67 18 152/49 L 98 05/07/19 18:07 05/07/19 18:07 05/07/19 18:07 05/07/19 18:07 05/07/19 18:07 - Physical Exam General Appearance: No: Apparent Distress Respiratory/Chest: positive: Lungs Clear, Normal Breath Sounds. negative: Respiratory Distress Cardiovascular: positive: Regular Rhythm, Regular Rate, S1, S2. negative: Murmur Gastrointestinal/Abdominal: positive: Soft, Distended. negative: Guarding, Rebound, Tenderness Extremity: positive: Pedal Edema (of BLE). negative: Calf Tenderness Integumentary: positive: Normal Color Neurologic: positive: Alert ED Treatment Course - LABORATORY CBC & Chemistry Diagram: 05/07/19 18:20 05/07/19 18:20 - ADDITIONAL ORDERS Additional order review: Laboratory Results 05/07/19 05/07/19 05/07/19 20:30 18:20 18:20 PT with INR 14.40 H INR 1.22 H Sodium Potassium Chloride Carbon Dioxide Anion Gap BUN Creatinine Est GFR (CKD-EPI)AfAm Est GFR (CKD-EPI)NonAf Random Glucose Calcium Total Bilirubin AST ALT Alkaline Phosphatase Total Protein Albumin Blood Type Cancelled Cancelled Antibody Screen Cancelled Cancelled 05/07/19 18:20 PT with INR INR Sodium 123 L Potassium 5.5 H Chloride 94 L Carbon Dioxide 20 L Anion Gap 9 BUN 57.8 H Creatinine 1.8 H Est GFR (CKD-EPI)AfAm 33.17 Est GFR (CKD-EPI)NonAf 28.62 Random Glucose 138 H Calcium 8.4 L Total Bilirubin 0.6 AST 19 ALT 14 Alkaline Phosphatase 70 Total Protein 6.6 Albumin 2.6 L Blood Type Antibody Screen 05/07/19 18:20 RBC 2.77 L MCV 81.8 MCHC 32.5 RDW 20.4 H MPV 7.2 L Neutrophils % 80.8 D Lymphocytes % 7.9 L D Monocytes % 9.3 Eosinophils % 0.9 Basophils % 1.1 Medical Decision Making - Medical Decision Making 68 y/o F hx of stage IV ovarian CA dx 2011 s/p hysterectomy and chemo, HTN, HLD , DM, CHF, GERD, CKD (has refused dialysis), was sent by Dr. Tsang (covering for Dr. Hendricks) as noted with low Hgb in blood work today. Patient was getting routine blood work prior to going for hospice. Has had blood transfusions in the past (last received around 2014). Denies fever, sob, cp, abd pain, n/v, dizziness, fatigue. Patient is mostly wheelchair bound and does not walk around much. Denies black/bloody stools, hematuria. Last endoscopy/ colonscopy was around 2014 which was normal. Abnormal Lab Results 05/07/19 05/07/19 05/07/19 18:20 18:20 18:20 WBC 11.3 H RBC 2.77 L Hgb 7.4 L Hct 22.7 L D RDW 20.4 H Plt Count 556 H D MPV 7.2 L Absolute Neuts (auto) 9.1 H Lymphocytes % 7.9 L D PT with INR 14.40 H INR 1.22 H Sodium 123 L Potassium 5.5 H Chloride 94 L Carbon Dioxide 20 L BUN 57.8 H Creatinine 1.8 H Random Glucose 138 H Calcium 8.4 L Albumin 2.6 L Labs reviewed Hgb 7.4 Noted hyponatremia, decreased from prior Also K is 5.5, BUN/Cr elevated (higher than baseline) EKG: NSR at 66 bpm, no peaked T waves D/W Dr. Cabrera - recommends [facility] D/W Dr. Tristen Ann, who is covering for Dr. Tsang - would like patient to still receive 1 unit of blood Patient consented for blood Will be admitted 05/07/19 21:43 Discharge - Discharge Information Problems reviewed: Yes Clinical Impression/Diagnosis: Anemia Qualifiers: Anemia type: unspecified type Qualified Code(s): D64.9 - Anemia, unspecified Condition: Stable - Admission Yes - Follow up/Referral Referrals: Jimmie Tsang [Primary Care Provider] - - Patient Discharge Instructions - Post Discharge Activity
[2019-05-08 05:04] VITALS: BMI 38.2
--- NOTE | 2019-05-08 07:45 | HP ---
Admitting History and Physical - Admission Chief Complaint: Acute dyspnea, and acute generalized muscle weakness. History of Present Illness: This 68 yr old female with hx of stage 4 ovarian cancer diagnosed 2011 , s/p hysterectomy and chemo, hypertension, hyperlipidemia, CHF, type 2 diabetes , GERD, CKD, admitted via ER for blood transfusion and observation. 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: Alzheimer's, CVA, Dementia, Migraine, Multiple Sclerosis, Peripheral Neuropathy, Parkinson's, Seizure, Syncope, TIA, Vertigo, Other Cardiovascular: Yes: HTN, Hyperlipdemia Gastrointestinal: Yes: Ascites (stage 4 ovarian cancer), GERD Hepatobiliary: No: Cirrhosis, Cholelithiasis, Cholecystitis, Choledocholithiasis , Hepatitis A, Hepatitis B, Hepatitis C, Other Renal/: Yes: Renal Failure Heme/Onc: Yes: Current Chemotherapy Infectious Disease: No: AIDS, C-Diff, Herpes Zoster, HIV, MRSA, STD's, Tuberculosis, VREF, Other Psych: No: Addictions, Anxiety, Bipolar, Depression, Panic, Psychosis, Schizophrenia, Other Musculoskeletal: No: Bursitis, Chronic low back pain, Hemiparesis, Hemiplegia, Osteoarthritis, Paraplegia, Other Rheumatology: No: Fibromyalgia, Gout, Lupus, Rheumatoid Arthritis, Sarcoidosis, Vasculitis, Other ENT: No: Allergic Rhinitis, Sinusitis, Other Endocrine: Yes: Diabetes Mellitus Dermatology: No: Basal Cell, Cellulitis, Eczema, Melanoma, Psoriasis, Squamous Cell, Other - Past Surgical History Past Surgical History: Yes: Hysterectomy (debulking) - Smoking History Smoking history: Never smoked Have you smoked in the past 12 months: No Aproximately how many cigarettes per day: 0 - Alcohol/Substance Use Hx Alcohol Use: No History of Substance Use: reports: None - Social History ADL: Independent History of Recent Travel: No Home Medications - Allergies Allergies/Adverse Reactions: Allergies Allergy/AdvReac Type Severity Reaction Status Date / Time No Known Allergies Allergy Verified 05/07/19 18:07 - Home Medications Home Medications: Ambulatory Orders Insulin (Novolog) [Novolog Flexpen -] 0 units SQ ACHS #0 pen 03/18/12 Isosorbide Mononitrate [Isosorbide Mononitrate ER] 30 mg PO BID 01/21/18 Aspirin [ASA -] 81 mg PO DAILY 07/18/18 Ferrous Sulfate 325 mg PO DAILY 07/18/18 Insulin Degludec [Tresiba Flextouch U-100] 0 unit SQ ASDIR 07/18/18 Magnesium 500 mg PO DAILY 07/18/18 [place]-3 Fatty Acids/Fish Oil [Fish Oil 1,000 mg Capsule] 1 each PO DAILY Omeprazole 40 mg PO DAILY 07/18/18 Valsartan 320 mg PO DAILY 07/18/18 Vitamin B Complex 1 each PO DAILY 07/18/18 Amlodipine Besylate [Norvasc -] 10 mg PO DAILY 30 Days #30 tablet 07/23/18 Cholecalciferol (Vitamin D3) [Vitamin D -] 400 unit PO DAILY tab 07/23/18 Insulin Sliding Scale [Novolog Vial Sliding Scale -] 1 vial SQ ACHS units 07/23 Metoprolol Tartrate [Lopressor -] 75 mg PO BID 30 Days #90 tablet 07/23/18 Multivitamins [Multivit ([facility] Formulary)] 1 tab PO DAILY tab 07/23/18 Ondansetron [Zofran *Odt*] 4 mg SL Q6H PRN tab.rapdis 07/23/18 Sumatriptan Succinate [Imitrex -] 50 mg PO ONCE PRN #9 tablet 07/23/18 Topiramate [Topamax -] 25 mg PO BID 30 Days #60 tablet 07/23/18 Review of Systems - Review of Systems Constitutional: reports: Weakness Eyes: reports: No Symptoms HENT: reports: No Symptoms Neck: reports: No Symptoms Cardiovascular: reports: No Symptoms Respiratory: reports: Orthopnea, SOB, SOB on Exertion Gastrointestinal: reports: No Symptoms Genitourinary: reports: No Symptoms Breasts: reports: No Symptoms Reported Musculoskeletal: reports: Muscle Weakness Integumentary: reports: No Symptoms Neurological: reports: Weakness Endocrine: reports: No Symptoms Hematology/Lymphatic: reports: No Symptoms Psychiatric: reports: No Symptoms Physical Examination Vital Signs: Vital Signs Temperature 98.2 F 05/08/19 06:00 Pulse Rate 74 05/08/19 06:00 Respiratory Rate 22 H 05/08/19 06:00 Blood Pressure 158/57 L 05/08/19 06:00 O2 Sat by Pulse Oximetry (%) 100 05/08/19 00:08 Constitutional: Yes: Mild Distress Eyes: Yes: Conjunctiva Clear, EOM Intact HENT: Yes: Atraumatic, Normocephalic Neck: Yes: Trachea Midline Cardiovascular: Yes: Regular Rate and Rhythm Respiratory: Yes: Regular, CTA Bilaterally Gastrointestinal: Yes: Normal Bowel Sounds, Soft, Distention, Other (Ascites) ...Rectal Exam: Yes: Deferred Renal/: Yes: WNL Breast(s): Yes: WNL Musculoskeletal: Yes: Muscle Weakness Edema: Yes Edema: LUE: Trace, RUE: Trace, LLE: 2+, RLE: 2+ Peripheral Pulses WNL: Yes Peripheral Pulses: Left Radial: 3+, Right Radial: 3+, Left Doralis Pedis: 3+, Right Dorsalis Pedis: 3+, Left Femoral: 3+, Right Femoral: 3+ Integumentary: Yes: WNL Neurological: Yes: Alert, Oriented ...Motor Strength: LUE (generalized muscle weakness of all extremities) Psychiatric: Yes: Alert, Oriented Labs: CBC, BMP 05/07/19 18:20 05/07/19 18:20 Imaging - Results Other: Report Reviewed (labs reviewed) Problem List - Problems (1) Anemia Code(s): D64.9 - ANEMIA, UNSPECIFIED Qualifiers: Anemia type: unspecified type Qualified Code(s): D64.9 - Anemia, unspecified (2) Hyponatremia Code(s): E87.1 - HYPO-OSMOLALITY AND HYPONATREMIA (3) Ovarian cancer Code(s): C56.9 - MALIGNANT NEOPLASM OF UNSPECIFIED OVARY (4) Hyperkalemia Code(s): E87.5 - HYPERKALEMIA (5) Ascites Code(s): R18.8 - OTHER ASCITES Assessment/Plan Assessment/plan: anemia, stage 4 ovarian cancer, ascites, dyspnea, hypokalemia, hyperkalemia, acute debility, acute generalized muscle weakness; blood transfusion, continue home meds, oxygen 2L/min via nasal cannula, discharge planning, social security assessor request.
[2019-05-08] MEDS ORDERED: SUMAtriptan SUCCINATE 50 MG TABLET PO PRN (08:02)
[2019-05-08] MEDS ORDERED: ONDANSETRON *ODT* 4 MG TABLET SL PRN (08:03)
[2019-05-08] MEDS ORDERED: INSULIN REGULAR HUMAN 100 UNITS/ML *VIAL SQ PRN (08:20)
[2019-05-08 09:48] LABS: HEMATOCRIT 24.5 % (32.4-45.2); MCH 26.4 pg (25.7-33.7); MCHC 32.7 g/dl (32.0-36.0); MEAN CELL VOLUME 80.9 fl (80-96); MEAN PLT VOLUME 7.1 fl (7.5-11.1); PLATELET COUNT 496 K/MM3 (134-434); RBC 3.03 M/mm3 (3.60-5.2); RDW 19.8 % (11.6-15.6); WHITE BLOOD COUNT 10.4 K/mm3 (4.0-10.0)
[2019-05-08] MEDS ORDERED: VALSARTAN 160 MG TABLET (UD) PO SCH (10:00)
[2019-05-08] MEDS ORDERED: FERROUS SO4 325 MG TABLET (FP) PO SCH (10:00)
[2019-05-08] MEDS ORDERED: SODIUM CHLORIDE 1 GM TABLET PO SCH (10:00)
[2019-05-08] MEDS ORDERED: METOPROLOL TARTRATE 25 MG TABLET (FP) PO SCH (10:00)
[2019-05-08] MEDS ORDERED: amLODIPine BESYLATE 10 MG TABLET (FP) PO SCH (10:00)
[2019-05-08] MEDS ORDERED: TOPIRAMATE 25 MG TABLET (FP) PO SCH (10:00)
[2019-05-08] MEDS ORDERED: ASPIRIN COATED 81 MG TABLET.EC PO SCH (10:00)
[2019-05-08] MEDS ORDERED: ISOSORBIDE MONONITRATE 30 MG TAB.SR.24H (FP) PO SCH (10:00)
[2019-05-08] MEDS ORDERED: MAGNESIUM OXIDE 400 MG TABLET (FP) PO SCH (10:00)
[2019-05-08] MEDS ORDERED: ISOSORBIDE MONONITRATE 60 MG TAB.SR.24H (FP) PO SCH (10:00)
[2019-05-08 10:10] LABS: ALBUMIN 2.5 g/dl (3.4-5.0); BILIRUBIN,TOTAL 0.7 mg/dL (0.2-1); BLOOD UREA NITROGEN 50.1 mg/dL (7-18); CALCIUM 8.6 mg/dL (8.5-10.1); CREATININE 1.6 mg/dL (0.55-1.3); POTASSIUM 4.8 mmol/L (3.5-5.1); TOT PROT 6.4 g/dl (6.4-8.2)
[2019-05-08 10:52] VITALS: TEMP 97.8
[2019-05-08] MEDS: INSULIN SLIDING SCALE (NOVOLOG) 1 VIAL SQ SCH ×2 (11:42→17:55)
--- NOTE | 2019-05-08 13:14 | EKG ---
Test Reason : Blood Pressure : / mmHG Vent. Rate : 069 BPM Atrial Rate : 069 BPM P-R Int : 178 ms QRS Dur : 090 ms QT Int : 420 ms P-R-T Axes : 077 -37 009 degrees QTc Int : 450 ms SINUS RHYTHM WITH PREMATURE ATRIAL COMPLEXES LEFT AXIS DEVIATION VOLTAGE CRITERIA FOR LEFT VENTRICULAR HYPERTROPHY NONSPECIFIC T WAVE ABNORMALITY ABNORMAL ECG WHEN COMPARED WITH ECG OF 07-MAY-2019 18:24, PREMATURE ATRIAL COMPLEXES ARE NOW PRESENT Confirmed by PEDRO PACKER MD ([id number]) on 05/08/2019 1:14:40 PM Referred By: Confirmed By:PEDRO PACKER MD
--- NOTE | 2019-05-08 13:16 | EKG ---
Test Reason : Blood Pressure : / mmHG Vent. Rate : 066 BPM Atrial Rate : 066 BPM P-R Int : 166 ms QRS Dur : 090 ms QT Int : 420 ms P-R-T Axes : 000 -38 007 degrees QTc Int : 440 ms NORMAL SINUS RHYTHM LEFT AXIS DEVIATION VOLTAGE CRITERIA FOR LEFT VENTRICULAR HYPERTROPHY POSSIBLE LATERAL INFARCT , AGE UNDETERMINED ABNORMAL ECG WHEN COMPARED WITH ECG OF 18-JUL-2018 19:25, BORDERLINE CRITERIA FOR LATERAL INFARCT ARE NOW PRESENT NONSPECIFIC T WAVE ABNORMALITY NOW EVIDENT IN ANTERIOR LEADS Confirmed by PEDRO PACKER MD ([id number]) on 05/08/2019 1:16:12 PM Referred By: Confirmed By:PEDRO PACKER MD
[2019-05-08] MEDS: SODIUM ZIRCONIUM CYCLOSILICATE (LOKELMA) 5 GM PACKET PO SCH (14:43)
[2019-05-08 15:39] VITALS: BP 147/55; PULSE 64
--- NOTE | 2019-05-08 17:53 | DS ---
Physical Examination Vital Signs: Vital Signs Temperature 97.8 F 05/08/19 14:00 Pulse Rate 64 05/08/19 14:00 Respiratory Rate 18 05/08/19 14:00 Blood Pressure 147/55 L 05/08/19 14:00 O2 Sat by Pulse Oximetry (%) 95 05/08/19 11:55 Labs: CBC, BMP 05/08/19 08:18 05/08/19 08:18 Discharge Summary Problems reviewed: Yes Reason For Visit: ANEMIA Current Active Problems Anemia (Acute) Ascites (Acute) Hyperkalemia (Acute) Condition: Stable - Instructions Diet, Activity, Other Instructions: Continue home meds including sodium chloride 500mg po od. Activity as tolerated. Follow up with Dr. Tsang. Total time spent over 30 minutes. Referrals: Jimmie Tsang [Primary Care Provider] - Disposition: HOME - Home Medications Comprehensive Discharge Medication List: Ambulatory Orders Insulin (Novolog) [Novolog Flexpen -] 0 units SQ ACHS #0 pen 03/18/12 Isosorbide Mononitrate [Isosorbide Mononitrate ER] 20 mg PO TID 01/21/18 Aspirin [ASA -] 81 mg PO DAILY 07/18/18 Ferrous Sulfate 325 mg PO DAILY 07/18/18 Insulin Degludec [Tresiba Flextouch U-100] 0 unit SQ ASDIR 07/18/18 Magnesium 500 mg PO DAILY 07/18/18 [place]-3 Fatty Acids/Fish Oil [Fish Oil 1,000 mg Capsule] 1,200 mg PO DAILY 07/18 Omeprazole 40 mg PO DAILY 07/18/18 Valsartan 320 mg PO DAILY 07/18/18 Vitamin B Complex 1 each PO DAILY 07/18/18 Amlodipine Besylate [Norvasc -] 10 mg PO DAILY 30 Days #30 tablet 07/23/18 Cholecalciferol (Vitamin D3) [Vitamin D -] 400 unit PO DAILY tab 07/23/18 Metoprolol Tartrate [Lopressor -] 75 mg PO BID 30 Days #90 tablet 07/23/18 Multivitamins [Multivit ([facility] Formul[facility])] 1 tab PO DAILY tab 07/23/18 Ondansetron [Zofran *Odt*] 4 mg SL Q6H PRN tab.rapdis 07/23/18 Sumatriptan Succinate [Imitrex -] 50 mg PO ONCE PRN #9 tablet 07/23/18 Topiramate [Topamax -] 25 mg PO BID 30 Days #60 tablet 07/23/18 Amlodipine Besylate [Norvasc -] 10 mg PO DAILY tablet 05/08/19 Arginine [l-Arginine] 500 mg PO AC 05/08/19 Aspirin Coated [Ecotrin -] 81 mg PO DAILY tablet.ec 05/08/19 Carvedilol 25 mg PO BID 05/08/19 Ferrous Sulfate [Feosol] 325 mg PO DAILY ud 05/08/19 Furosemide 40 mg PO BID 05/08/19 Hydralazine HCl 50 mg PO BID 05/08/19 Insulin Degludec [Tresiba] 100 unit SQ AC 05/08/19 Insulin Regular [Novolin R Vial -] 2 units SQ ONCE PRN units 05/08/19 Insulin Sliding Scale [Novolog Vial Sliding Scale -] 1 vial SQ ACBK 05/08/19 Isosorbide Mononitrate [Imdur -] 30 mg PO BID tab.sr.24h 05/08/19 Isosorbide Mononitrate [Imdur -] 60 mg PO DAILY tab.sr.24h 05/08/19 Magnesium Oxide [Mag-Ox -] 400 mg PO DAILY tablet 05/08/19 Metoprolol Tartrate [Lopressor -] 75 mg PO BID tablet 05/08/19 Nifedipine ER [Procardia XL -] 60 tab PO BID 05/08/19 Ondansetron [Zofran *Odt*] 4 mg SL Q6H PRN tab.rapdis 05/08/19 Pantoprazole Sodium 40 mg PO AC 05/08/19 Ranitidine HCl 150 mg PO TID 05/08/19 Sodium Chloride Tablet - 0.5 gm PO DAILY tablet 05/08/19 Sodium Zirconium Cyclosilicate [Lokelma] 5 gm PO DAILY packet 05/08/19 Sumatriptan Succinate [Imitrex -] 50 mg PO ONCE PRN tablet 05/08/19 Topiramate [Topamax -] 25 mg PO BID tablet 05/08/19 Valsartan [Diovan] 320 mg PO DAILY tablet 05/08/19
== END 2019-05-08 17:30 | disposition home or self-care (01) ==
LOC: JER 18:00 → JERBED 21:47 → J5S 05-08 01:13
PROVIDERS: ADMIT Internal Medicine; ATTEND Internal Medicine
PROC: 30233N1 Transfusion of Nonautologous Red Blood Cells into Peripheral Vein, Percutaneous Approach (ICD-10-PCS; principal; 2019-05-07)
DX: D64.9 Anemia, unspecified (principal); E87.1 Hypo-osmolality and hyponatremia; I10 Essential (primary) hypertension; E78.5 Hyperlipidemia, unspecified; I25.10 Atherosclerotic heart disease of native coronary artery without angina pectoris; E11.9 Type 2 diabetes mellitus without complications; K21.9 Gastro-esophageal reflux disease without esophagitis; Z85.43 Personal history of malignant neoplasm of ovary; Z92.21 Personal history of antineoplastic chemotherapy; Z90.710 Acquired absence of both cervix and uterus; Z79.82 Long term (current) use of aspirin; Z79.4 Long term (current) use of insulin
CPT/HCPCS: 36415; 80053; 82962; 85025; 85027; 85610; 93005; 93010; 94761; 99285-25; G0378